=== PATIENT | male | born 1955 ===

== ENCOUNTER 2022-01-19 10:50 | Inpatient (IN) ==
--- NOTE | 2022-01-19 11:07 | Internal Med History&Physical ---
HPI History of Present Illness Patient information: Note initiated : 01/19/22 at 11:04 am Service Date, if different from initiated Date: [] Patient: Armani Au a 66 y/o M admitted on for alcohol withdraw. Chief Complaint: [] History of present illness: Mr. Au is a 66 year old M Patient presents to [facility] Monday night for alcohol withdrawal. He has a history of alcohol-related seizure activity. He drinks a fifth of vodka daily In [place], he has been on IV Ativan with elevated CIWA scores and they have also been using Librium as they are running low on Ativan. They must be out of bed and are looking elsewhere for transfer. Chest x-ray report done at [place] reported left lower lobe consolidation. We will check a CBC and procalcitonin to evaluate for pneumonia. Patient does carry history of depression/PTSD possibly CAD and CHF as well as asthma obesity and of course alcohol abuse. Patient has a history of CAD with stents and is on Eliquis he says that Eliquis is for his heart. Patient has a history of COPD is on 4 L of oxygen day and night. He also wears a CPAP machine at night for DANE. Has a cough but states this is chronic. Also complains of headaches Review of Systems: Pertinent positives as above. Denies /fever/chills/nausea/vomiting/chest or abdominal pain/diarrhea. Remaining 10 point review of system reviewed negative MEDS/ALLERGIES Home Medications and Allergies Allergies Allergy/AdvReac Type Severity Reaction Status Date / Time No Known Drug Allergies Allergy Verified 01/19/22 14:07 EXAM Constitutional Exam: General: Awake, No acute Distress, obese Eyes/N/T: EOMI, PERRL, Head/Neck: neck supple, normocephalic atraumatic CV: Mildly tacky but regular, No murmurs, normal s1/s2 Pulm: Moderately diminished b/l, wheezing b/l Abd: soft, nontender, +BS x4 Ext: no clubbing/cyanosis, 1+ b/l LE edema Neuro: Awake but drowsy, no focal deficits, moves all extremities, CN 2-12 grossly intact, symmetrical strength b/l upper/lower, Skin: warm/dry A/P Narrative A/P Narrative: A: *Alcohol abuse and severe Alcohol Withdrawal: *Encephalopathy(drowsy): 2/2 above *COPD (4L O2@home): possible exacerbation - *Tobacco abuse: *Obesity: *DANE on cpap: *CAD w/stent: on eliquis *?h/o CHF *Depression/PTSD: *Chronic pain/Neuropathy: *GERD: P: -CIWA with prn benzo, vitamins/thiamine/folate -monitor airway and vitals closely -labs, cxr/pct, -O2 supp, IS/acapella, prn nebs, RT -cpap -Smoking cessation counseling >3 minutes -Home medication reconciliation -pt/ot -ppx: eliquis / home ppi Time Spent With Patient Time: Total time spent is greater than 50% in coordination of care (as documented) at patient's floor/unit and/or counseling patient: Total time spent with greater than 50% in coordination of care (as documented) at patient's floor/unit and/or counseling patient:: Greater than 70 minutes
[2022-01-19] MEDS ORDERED: MAGNESIUM SULFATE 2 GM/50 ML BAG IV PRN (11:12)
[2022-01-19] MEDS ORDERED: POTASSIUM CHLORIDE 20 MEQ TABLET PO PRN ×2 (11:12)
[2022-01-19] MEDS ORDERED: METOCLOPRAMIDE 10 MG/2 ML VIAL IV PRN (11:12)
[2022-01-19] MEDS ORDERED: POTASSIUM CHLORIDE 40 MEQ in DEXTROSE 5% IN WATER 500 ML IV PRN (11:12)
[2022-01-19] MEDS ORDERED: cloNIDine HCL 0.1 MG TABLET PO PRN (14:17)
[2022-01-19] MEDS: LORazepam 2 MG/ML VIAL IV PRN (14:19)
[2022-01-19] MEDS: 0.9 % SODIUM CHLORIDE 10 ML SYRINGE IV SCH ×5 (14:26→23:33)
--- NOTE | 2022-01-19 14:53 | XRay Report ---
CLINICAL INFORMATION: Wheezing COMPARISON: None. TECHNIQUE: Portable FINDINGS: Heart is mildly enlarged. TAVR aortic valve replacement in expected location. Mediastinum is unremarkable. There is mild redistribution of the upper lobe pulmonary vasculature. No edema. Subsegmental left basilar atelectasis and small left pleural effusion noted. No definite infiltrates. IMPRESSION: Subsegmental left basilar atelectasis and small left pleural effusion. Equivocal CHF or volume overload. Consider diuretic trial Interpreted and Authenticated by: Armani Jimenez 01/19/22
[2022-01-19 15:00] LABS: INR 0.9 (0.9-1.1); Prothrombin Time 12.7 sec (11.9-14.5)
[2022-01-19] MEDS ORDERED: FUROSEMIDE 40 MG/4 ML VIAL IV ONE (15:00)
[2022-01-19] MEDS: THIAMINE 100 MG in 0.9 % SODIUM CHLORIDE 50 ML IV SCH (15:09)
[2022-01-19 15:15] LABS: HDL Cholesterol 48 mg/dL (>40); LDL Cholesterol,Calculated 98 mg/dL (<100); Non-HDL Cholesterol 118 mg/dL (<130); Triglycerides 105 mg/dL (<150)
[2022-01-19] MEDS ORDERED: HALOPERIDOL LACTATE 5 MG/ML VIAL IV ONE (15:33)
[2022-01-19] MEDS ORDERED: DIAZEPAM 10 MG/2 ML SYRINGE IV PRN ×2 (15:36→19:31)
[2022-01-19 15:41] LABS: ALT/SGPT 17 U/L (<40); AST/SGOT 22 U/L (<40); Albumin/Globulin Ratio 1.5 (1.0-2.3); Alkaline Phosphatase 72 U/L (39-117); Bilirubin,Direct < 0.2 mg/dL (0-0.3); Bilirubin,Total 0.3 mg/dL (0.1-1.0); Blood Urea Nitrogen 9 mg/dL (8-23); Calcium 8.7 mg/dL (8.6-10.4); Carbon Dioxide 26 mmol/L (22-30); Chloride 103 mmol/L (96-108); Globulin 2.6 gm/dL (2.2-3.7); Glomerular Filtration Rate 103; Glucose 90 mg/dL (70-105); Lactate Dehydrogenase 304 U/L (135-225); Phosphorous 3.3 mg/dL (2.5-4.5); Triglycerides 107 mg/dL (<150); Uric Acid 4.7 mg/dL (2.5-8.0)
[2022-01-19] MEDS ORDERED: HALOPERIDOL LACTATE 5 MG/ML VIAL ONE (15:43)
[2022-01-19] MEDS: IPRATROPIUM/ALBUTEROL 3 ML AMPUL.NEB NEB SCH ×2 (15:46→18:01)
[2022-01-19] MEDS: DEXMEDETOMIDINE 400 MCG in PREMIX 1 BAG IV SCH ×2 (16:10→22:30)
[2022-01-19] MEDS: BUDESONIDE 0.5 MG/2 ML AMPUL.NEB NEB SCH ×2 (18:01→23:35)
[2022-01-19] MEDS: ONDANSETRON 4 MG/2 ML VIAL IV PRN (19:01)
[2022-01-19] MEDS ORDERED: cloNIDine TTS 1 1 PATCH PATCH TD PRN (19:28)
[2022-01-19] MEDS ORDERED: morphine 4 MG/ML VIAL ONE (20:05)
--- NOTE | 2022-01-19 20:26 | Procedure Note ---
PROC Central Line Placement Right IJ: Consent obtained: verbal consent Date of Procedure: 01/19/22 Time out performed: Yes Patient placed on monitor/pulse ox: Yes MD prep: mask, sterile gown, sterile gloves and cap Central line prep: 2% Chlorhexidine scrub Local anesthesia used: lidocaine 1% Amount of anesthesia used (mls): 3 Ultrasound used for placement: Yes Central line lumen inserted: quad and 16 cm Post procedure: sutured in place, good blood return, all ports aspirated, flushed, capped and sterile dressing applied Patient tolerated procedure: well Complications: none Additional comments: Stat chest x-ray ordered to confirm placement. Poor IV access and need for central access.
[2022-01-19] MEDS ORDERED: APIXABAN 5 MG TABLET PO SCH (21:00)
[2022-01-19] MEDS: DOCUSATE SODIUM 100 MG CAPSULE PO SCH (21:26)
[2022-01-19] MEDS: ENOXAPARIN 60 MG/0.6 ML SYRINGE SQ SCH (21:28)
[2022-01-19] MEDS ORDERED: methylPREDNISolone SOD SUCC 125 MG/2 ML VIAL IV ONE (21:37)
[2022-01-19] MEDS: IPRATROPIUM/ALBUTEROL 3 ML AMPUL.NEB NEB PRN (21:43)
[2022-01-19] MEDS: methylPREDNISolone SOD SUCC 125 MG/2 ML VIAL IV SCH (23:31)
[2022-01-19] MEDS ORDERED: methylPREDNISolone SOD SUCC 40 MG/ML VIAL IV ONE (23:38)
[2022-01-20] MEDS: ONDANSETRON 4 MG/2 ML VIAL IV PRN (00:10)
[2022-01-20] MEDS: IPRATROPIUM/ALBUTEROL 3 ML AMPUL.NEB NEB SCH ×2 (00:22→09:27)
[2022-01-20] MEDS ORDERED: PIPERACILLIN SODIUM/TAZOBACTAM 3.375 GM in DEXTROSE 5% IN WATER 50 ML IV ONE (00:34)
[2022-01-20] MEDS: morphine 2 MG/ML VIAL IV PRN ×3 (01:07→08:32)
[2022-01-20] MEDS ORDERED: MIDAZOLAM HCL 50 MG/10 ML VIAL IV ONE (01:34)
--- NOTE | 2022-01-20 01:48 | Emergency Department Note ---
Event Note Event Note: Procedure note: Intubation with procedural sedation A time out was performed. Patient received 20 mg of etomidate for induction and 100 mg of rocuronium for paralysis Gerlach scope was used and vocal cords were identified 7.5 endotracheal tube with stylette was utilized and visualized through the cords Patient was intubated on first attempt and the stylet was removed and balloon cuff inflated Position of the tube was confirmed with fogging of the tube, CO2 colorimetric indicator and bilateral symmetric breath sounds The tube was secured at 21 cm at the teeth Post intubation chest x-ray showed the tube need to be advanced To advance the 28 cm at the teeth with x-ray confirming good placement No complication encountered. Patient stable on ventilator at completion of procedure.
[2022-01-20] MEDS: MIDAZOLAM HCL 50 MG in 0.9 % SODIUM CHLORIDE 90 ML IV SCH ×3 (02:20→19:49)
--- NOTE | 2022-01-20 03:30 | XRay Report ---
CLINICAL INFORMATION: Wheezing COMPARISON: 01/19/2022 1416 hours TECHNIQUE: Portable FINDINGS: The right IJ central line tip overlies the SVC. No complication of line placement. Heart is mildly enlarged. TAVR aortic valve replacement in expected location. Mediastinum is unremarkable. Pulmonary vasculature is unremarkable on this exam. Minor left basilar atelectasis appreciated. Small left pleural effusion IMPRESSION: Subsegmental left basilar atelectasis and small left effusion improving No evidence of CHF New right IJ central line in satisfactory position. No complication from line placement. Interpreted and Authenticated by: Armani Jimenez 01/20/22
--- NOTE | 2022-01-20 03:32 | XRay Report ---
CLINICAL INFORMATION: Dyspnea. Endotracheal tube and NG placement COMPARISON: 11/19/20212024 hours TECHNIQUE: PA and Lateral views FINDINGS: Mild cardiomegaly unchanged. Mediastinum unremarkable. Endotracheal tip is 3 cm above the mark. NG tube extends off the edge of the film-at least the gastric body. Right IJ line is stable satisfactory position. Pulmonary vessels normal. Minor left basilar atelectasis and tiny left pleural effusion unchanged. IMPRESSION: Endotracheal tube and NG tube in satisfactory position. Minor left basilar atelectasis Interpreted and Authenticated by: Armani Jimenez 01/20/22
[2022-01-20] MEDS: 0.9 % SODIUM CHLORIDE 10 ML SYRINGE IV SCH ×9 (03:55→20:22)
[2022-01-20] MEDS: DEXMEDETOMIDINE 400 MCG in PREMIX 1 BAG IV SCH ×3 (05:34→18:13)
[2022-01-20] MEDS: methylPREDNISolone SOD SUCC 125 MG/2 ML VIAL IV SCH ×3 (06:45→21:09)
[2022-01-20 06:54] LABS: Basophils # (Auto) 0.02 K/mcL (0.00-0.30); Basophils % (Auto) 0.3 % (0.0-2.0); Eosinophils # (Auto) 0.01 K/mcL (0.00-0.70); Eosinophils % (Auto) 0.1 % (0.0-7.0); Hematocrit 37.1 % (40.1-51.0); Hemoglobin 11.1 g/dL (13.7-17.5); Lymphocytes # (Auto) 0.56 K/mcL (1.50-4.80); Mean Cell Volume 85.1 fL (80.0-100.0); Mean Corpuscular HGB Conc 29.9 g/dL (31.0-36.0); Mean Platelet Volume 10.7 fL (7.4-10.4); Monocytes # (Auto) 0.24 K/mcL (0.10-0.90); Neutrophils % (Auto) 89.3 % (38.0-78.0); Platelet Count 170 K/mcL (140-440); RBC 4.36 M/mcL (4.63-6.08); Red Cell Distribution Width 16.5 % (11.5-14.5)
[2022-01-20 07:16] LABS: ALT/SGPT 16 U/L (<40); AST/SGOT 20 U/L (<40); Albumin 3.5 gm/dL (3.2-5.2); Albumin/Globulin Ratio 1.2 (1.0-2.3); Alkaline Phosphatase 67 U/L (39-117); Bilirubin,Direct < 0.2 mg/dL (0-0.3); Bilirubin,Total 0.3 mg/dL (0.1-1.0); Blood Urea Nitrogen 14 mg/dL (8-23); Calcium 8.8 mg/dL (8.6-10.4); Carbon Dioxide 30 mmol/L (22-30); Chloride 101 mmol/L (96-108); Globulin 2.9 gm/dL (2.2-3.7); Glomerular Filtration Rate 91; Glucose 160 mg/dL (70-105); Lactate Dehydrogenase 294 U/L (135-225); Phosphorous 2.7 mg/dL (2.5-4.5); Triglycerides 104 mg/dL (<150); Uric Acid 5.7 mg/dL (2.5-8.0)
--- NOTE | 2022-01-20 07:44 | Internal Med Progress Note ---
SUBJECTIVE Subjective Patient information: Note initiated : 01/20/22 at 7:42 am Service Date, if different from initiated Date: [] Patient: Armani Au a 66 y/o M admitted on 01/19/22 for alcohol withdraw. Chief Complaint: [] Interval history: History of present illness: Mr. Au is a 66 year old M Patient presents to [facility] Monday night for alcohol withdrawal. He has a history of alcohol-related seizure activity. He drinks a fifth of vodka daily In [place], he has been on IV Ativan with elevated CIWA scores and they have also been using Librium as they are running low on Ativan. They must be out of bed and are looking elsewhere for transfer. Chest x-ray report done at [place] reported left lower lobe consolidation. We will check a CBC and procalcitonin to evaluate for pneumonia. Patient does carry history of depression/PTSD possibly CAD and CHF as well as asthma obesity and of course alcohol abuse. Patient has a history of CAD with stents and is on Eliquis he says that Eliquis is for his heart. Patient has a history of COPD is on 4 L of oxygen day and night. He also wears a CPAP machine at night for DANE. Has a cough but states this is chronic. Also complains of headaches 01/20 Patient found to be hypercapnic with respiratory acidosis upon arrival yesterday was placed on BiPAP. Patient became quite agitated at times and did require heavy sedation. Over time his work of breathing increased and concern for airway compromise with IV sedation patient required intubation. Started on acute exacerbation COPD treatment yesterday for bilateral wheezing and severely diminished lung sounds. Review of system: Unable obtain given sedated on the vent Constitutional Vitals: Vital Signs Temp Pulse Resp BP Pulse Ox O2 Del Method O2 Flow Rate 99.1 F H 69 19 119/73 96 5 01/20/22 07:01 01/20/22 07:01 01/20/22 06:01 01/20/22 07:01 01/20/22 07:01 01/20/22 03:20 01/19/22 22:01 Period Temp Pulse Resp BP Sys/Gonzales Pulse Ox O2 Del Method O2 Flow Rate Last 24 Hr 97.8 F-101.3 F 66-103 13-41 88-165/58-96 90-100 BiPAP-Oxymask 4-7 Intake and Output 01/19/22 01/20/22 01/20/22 21:59 05:59 13:59 Intake Total 103 196 Output Total 187 210 65 Balance -1771 Weight 107.592 kg Intake & Output: Intake & Output 01/19/22 01/20/22 01/20/22 21:59 05:59 13:59 Intake Total 103 196 Output Total 1874 210 65 Balance -1771 Weight 107.592 kg Intake: IV 103 196 Precedex 400 Mcg/100 ml 52 122 Dextrose 400 Mcg In Premix 1 Bag @ 0.2 MCG/KG/HR 5.6 mls/hr IV .[id number] [facility] Rx#:[id number] Versed 50 mg In Sodium Chloride 24 0.9% 90 ml @ 1 MG/HR 2 mls/hr IV Q24H [facility] Rx#:[id number] Zosyn 3.375 gm In Dextrose 5% 50 in Water 50 ml @ 100 mls/hr IV ONCE ONE Rx#:[id number] Vitamin B1 100 mg In Sodium 51 Chloride 0.9% 50 ml @ 50 mls/hr IV DAILY [facility] Rx#:[id number] Tube Feeding 0 Output: Urine Catheter Amount 1874 Other: Urine Appearance Clear Cloudy Sediment Uretheral (Damon) Clear Urine Color Bright Yellow Bright Yellow Dark Yellow Uretheral (Damon) Dark Yellow Urine Odor Uretheral (Damon) Strong Exam: General: Sedated on the vent no acute Distress, obese Eyes/N/T: PERRL, Head/Neck: neck supple, CV: RRR, No murmurs, Pulm: mildly diminished b/l, mild wheezing left side Abd: soft, protuberant, nontender, decreased BS x4 Ext: no clubbing/cyanosis, mild b/l LE edema Neuro: Sedated on the vent, moves all extremities spontaneously, Skin: warm/dry OBJ DATA Labs CBC & Chem 7: 01/20/22 05:39 01/20/22 05:39 Labs: Abnormal Lab Results 01/20/22 01/20/22 01/20/22 05:39 05:39 02:10 RBC 4.36 L Hgb 11.1 L Hct 37.1 L MCH 25.5 L MCHC 29.9 L RDW 16.5 H MPV 10.7 H Neut % (Auto) 89.3 H Lymph % (Auto) 7.0 L Lymph # (Auto) 0.56 L POC pH 7.31 L POC pCO2 68.3 H* POC pO2 POC HCO3 34.5 H POC Total CO2 37.0 H POC ABG Base Excess 8.0 H ABG Lactic Acid 0.3 L Hgb O2 Saturation Creatinine Glucose 160 H Lactate Dehydrogenase 294 H 01/20/22 01/19/22 01/19/22 00:56 23:59 22:49 RBC Hgb Hct MCH MCHC RDW MPV Neut % (Auto) Lymph % (Auto) Lymph # (Auto) POC pH 7.28 L 7.29 L 7.27 L POC pCO2 70.5 H* 69.0 H* 76.3 H* POC pO2 53 L 50 L 79 L POC HCO3 33.4 H 33.3 H 34.8 H POC Total CO2 36.0 H 35.0 H 37.0 H POC ABG Base Excess 7.0 H 7.0 H 8.0 H ABG Lactic Acid < 0.3 L 0.4 L 0.4 L Hgb O2 Saturation 81.0 L 79.0 L 93.0 L Creatinine Glucose Lactate Dehydrogenase 01/19/22 01/19/22 14:51 14:13 RBC Hgb Hct MCH MCHC RDW MPV Neut % (Auto) Lymph % (Auto) Lymph # (Auto) POC pH 7.26 L POC pCO2 71.3 H* POC pO2 POC HCO3 31.9 H POC Total CO2 34.0 H POC ABG Base Excess 5.0 H ABG Lactic Acid < 0.3 L Hgb O2 Saturation Creatinine 0.6 L Glucose Lactate Dehydrogenase 304 H Meds: Medications Acetaminophen (Acetaminophen 325 Mg Tablet) 650 mg PO Q6HP PRN; Protocol PRN Reason: Per Pain Protocol/Fever > 101 Hydrocodone Bitart/Acetaminophen (Hydrocodone/Apap 5/325mg Tablet) 1 tab PO Q4HP PRN PRN Reason: PAIN LEVEL 3-6 Albuterol/Ipratropium (Ipratropium/Albuterol 3 Ml Ampul.Neb) 3 ml NEB Q4HP PRN PRN Reason: Shortness Of Breath Last Admin: 01/19/22 21:43 Dose: 3 ml Budesonide (Budesonide 0.5 Mg/2 Ml Ampul.Neb) 0.5 mg NEB Q12 SARAH Last Admin: 01/19/22 23:35 Dose: Not Given Chlordiazepoxide HCl (Chlordiazepoxide 25 Mg Capsule) 50 mg PO Q4HP PRN PRN Reason: Alcohol Withdrawal/Assess CIWA Chlorhexidine Gluconate (Chlorhexidine Gluconate 1 Ml Oral.Merissa) 15 ml SWABMOUTH BID [facility] Clonidine HCl (Clonidine Tts 1 1 Patch Patch) 1 patch TD ONCE PRN PRN Reason: hypertension, withdrawal Last Admin: 01/20/22 03:04 Dose: 1 patch Diazepam (Diazepam 10 Mg/2 Ml Syringe) 5 mg IV Q2HP PRN PRN Reason: Alcohol Withdrawal/Assess CIWA Docusate Sodium (Docusate Sodium 100 Mg Capsule) 100 mg PO BID [facility] Last Admin: 01/19/22 21:26 Dose: Not Given Enoxaparin Sodium (Enoxaparin 60 Mg/0.6 Ml Syringe) 60 mg SQ BID [facility] Last Admin: 01/19/22 21:28 Dose: 60 mg Folic Acid (Folic Acid 1 Mg Tablet) 1 mg PO DAILY [facility] Haloperidol Lactate (Haloperidol Lactate 5 Mg/Ml Vial) 0.5 mg IM Q2HP PRN PRN Reason: Alcohol Withdrawal/Assess CIWA Potassium Chloride 40 meq/ (Dextrose) 520 mls @ 130 mls/hr IV UD PRN PRN Reason: Potassium < 3 Magnesium Sulfate (Magnesium Sulfate) 2 gm in 50 mls @ 50 mls/hr IV UD PRN PRN Reason: Magnesium </= 1.6 Thiamine HCl 100 mg/ Sodium (Chloride) 51 mls @ 50 mls/hr IV DAILY [facility] Last Infusion: 01/19/22 18:05 Dose: Infused Dexmedetomidine HCl 400 mcg/ (Premix) 100 mls @ 5.6 mls/hr IV .[id number] [facility]; Protocol Last Admin: 01/20/22 05:34 Dose: 0.6 mcg/kg/hr, 16.8 mls/hr Midazolam HCl 50 mg/ Sodium (Chloride) 100 mls @ 2 mls/hr IV Q24H [facility]; Protocol Last Titration: 01/20/22 05:20 Dose: 4 mg/hr, 8 mls/hr Iron Carb/Multivit/Organizational Development Specialist/Folic Acid (Multivit,Ther Iron,Ca,Fa & Min 1 Tablet) 1 tab PO DAILY [facility] Lorazepam (Lorazepam 2 Mg/Ml Vial) 0 mg IV Q4HP PRN; Protocol PRN Reason: Alcohol Withdrawal/Assess CIWA Last Admin: 01/19/22 14:19 Dose: 3 mg Methylprednisolone Sodium Succinate (Methylprednisolone Sod Succ 125 Mg/2 Ml Vial) 62.5 mg IV Q8 [facility] Last Admin: 01/20/22 06:45 Dose: 62.5 mg Metoclopramide HCl (Metoclopramide 10 Mg/2 Ml Vial) 10 mg IV Q6HP PRN PRN Reason: Nausea And Vomiting Morphine Sulfate (Morphine 2 Mg/Ml Vial) 1 - 4 mg IV Q3HP PRN; Protocol PRN Reason: Per Pain Protocol Last Admin: 01/20/22 03:55 Dose: 4 mg Ondansetron HCl (Ondansetron 4 Mg/2 Ml Vial) 4 mg IV Q4HP PRN PRN Reason: Nausea And Vomiting Last Admin: 01/20/22 00:10 Dose: 4 mg Pantoprazole Sodium (Pantoprazole 40 Mg Vial) 40 mg IV QAMAC [facility] Polyethylene Glycol (Polyethylene Glycol 3350 17 Gm Packet) 17 gm PO DAILYP PRN PRN Reason: Constipation Potassium Chloride (Potassium Chloride 20 Meq Tablet) 40 meq PO UD PRN PRN Reason: Potssium is 3-3.5 Potassium Chloride (Potassium Chloride 20 Meq Tablet) 40 meq PO UD PRN PRN Reason: Potassium < 3 Senna (Sennosides 1 Tablet) 2 tab PO DAILYP PRN PRN Reason: Constipation Sodium Chloride (0.9 % Sodium Chloride 10 Ml Syringe) 10 ml IV Q8 [facility] Last Admin: 01/20/22 05:35 Dose: 10 ml Sodium Chloride (0.9 % Sodium Chloride 10 Ml Syringe) 10 ml IV Q12 [facility] Last Admin: 01/19/22 21:00 Dose: 10 ml Sodium Chloride (0.9 % Sodium Chloride 10 Ml Syringe) 10 ml IV UD [facility] Last Admin: 01/20/22 06:47 Dose: 10 ml A/P Narrative A/P Narrative: A: *Alcohol abuse with Severe Alcohol Withdrawal: *Acute hypoxic/hypercapnic respiratory failure: 2/2 above -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 *Encephalopathy: 2/2 above *AECOPD (4L O2@home): - *Tobacco abuse: *Obesity: bmi 32 *DANE on cpap: *CAD w/stent: on eliquis *?h/o CHF: echo pending *Depression/PTSD: *Chronic pain/Neuropathy: *GERD: P: -vent management, versed gtt -CIWA with prn benzo, vitamins/thiamine/folate -steroids(wean), nebs and prn nebs -IVF maintenance while npo - -home cpap when off ventilator -Smoking cessation counseling -Home medication reconciliation -pt/ot -ppx: lovenox bid while off eliquis / ppi Time Spent With Patient Time: Total time spent is greater than 50% in coordination of care (as documented) at patient's floor/unit and/or counseling patient: Critical Care Time: Yes Total Critical Care Time: 50 QUALITY VTE Deep Vein Thrombosis/Pulmonary Embolism Present on Admission: No
[2022-01-20] MEDS: PANTOPRAZOLE 40 MG VIAL IV SCH (07:55)
[2022-01-20] MEDS: BUDESONIDE 0.5 MG/2 ML AMPUL.NEB NEB SCH ×2 (08:23→22:15)
[2022-01-20] MEDS: IPRATROPIUM/ALBUTEROL 3 ML AMPUL.NEB NEB PRN ×2 (08:24→14:11)
[2022-01-20] MEDS ORDERED: ETOMIDATE 20 MG/10 ML VIAL IV ONE (08:54)
[2022-01-20] MEDS ORDERED: ROCURONIUM 10 MG/ML ML IV ONE (08:54)
[2022-01-20] MEDS ORDERED: ENOXAPARIN 40 MG/0.4 ML SYRINGE SQ SCH (09:00)
[2022-01-20] MEDS ORDERED: LACTATED RINGERS 250 ML IV ONE (09:13)
[2022-01-20] MEDS: DOCUSATE SODIUM 100 MG CAPSULE PO SCH (09:27)
[2022-01-20 09:47] LABS: Anisocytosis 1+ (None Seen); Band Neutrophils % 4 % (0-10); Hypochromasia 2+ (None Seen); Lymphocytes % 2 % (15-49); Monocytes % (Manual) 2 % (1-12); Platelet Estimate NORMAL (Normal); Poikilocytosis 1+ (None Seen); RBC Morphology ABNORMAL (Normal); Reactive Lymphocytes 9 % (0-2); Segmented Neutrophils % 83 % (38-78)
[2022-01-20] MEDS: CHLORHEXIDINE GLUCONATE 1 ML ORAL.SOL SWABMOUTH SCH ×3 (09:52→20:22)
[2022-01-20] MEDS: FOLIC ACID 1 MG TABLET PO SCH (09:52)
[2022-01-20] MEDS: MULTIVIT,THER IRON,CA,FA & MIN 1 TABLET PO SCH (09:52)
[2022-01-20] MEDS: ENOXAPARIN 60 MG/0.6 ML SYRINGE SQ SCH ×2 (10:16→20:22)
[2022-01-20] MEDS: THIAMINE 100 MG in 0.9 % SODIUM CHLORIDE 50 ML IV SCH (10:56)
[2022-01-20] MEDS: DOCUSATE SODIUM 10 MG/ML ML PO SCH ×2 (11:37→21:03)
[2022-01-20] MEDS: 0.9 % SODIUM CHLORIDE 1,000 ML IV SCH ×3 (12:07→19:40)
[2022-01-20] MEDS: fentaNYL 100 MCG/2 ML VIAL IV PRN (14:45)
[2022-01-20] MEDS: GABAPENTIN 400 MG CAPSULE PO SCH ×2 (16:26→20:21)
[2022-01-20] MEDS: LACTATED RINGERS 250 ML IV SCH ×2 (17:21→19:43)
[2022-01-20 18:42] LABS: Appearance,Urine Clear (Clear); Bilirubin,Urine Negative (Negative); Color,Urine Yellow; Glucose,Urine (UA) Negative (Negative); Ketones,Urine Negative (Negative); Leukocyte Esterase,Urine Negative /uL (Negative); Nitrate,Urine Negative (Negative); PH,Urine 5.5 (5.0-9.0); Specific Gravity,Urine >= 1.030 (1.000-1.035); Urine Blood Large ery/mcL (Negative); Urobilinogen,Urine Normal
[2022-01-20 18:55] LABS: Culture Indicated,Urine No; Mucus,Urine Many /hpf; Urine Hyaline Cast 8 /lph (0-2); Urine RBC 174 /hpf (0-3); Urine Squamous Epithelial Cell 0 /hpf (0-4); Urine WBC 6 /hpf (0-4)
[2022-01-20] MEDS ORDERED: 0.9 % SODIUM CHLORIDE 250 ML IV SCH (19:45)
[2022-01-20] MEDS: 0.9 % SODIUM CHLORIDE 250 ML IV SCH (19:49)
[2022-01-20] MEDS: MONTELUKAST 10 MG TABLET PO SCH (20:21)
[2022-01-20] MEDS: ATORVASTATIN 40 MG TABLET PO SCH (20:21)
[2022-01-21] MEDS: fentaNYL 100 MCG/2 ML VIAL IV PRN ×5 (00:10→21:10)
[2022-01-21] MEDS: IPRATROPIUM/ALBUTEROL 3 ML AMPUL.NEB NEB PRN ×2 (00:30→06:38)
[2022-01-21] MEDS: LORazepam 2 MG/ML VIAL IV PRN ×4 (00:51→20:46)
[2022-01-21] MEDS: DEXMEDETOMIDINE 400 MCG in PREMIX 1 BAG IV SCH ×4 (00:54→06:02)
[2022-01-21] MEDS: MIDAZOLAM HCL 50 MG in 0.9 % SODIUM CHLORIDE 90 ML IV SCH ×4 (02:21→17:59)
[2022-01-21] MEDS: 0.9 % SODIUM CHLORIDE 1,000 ML IV SCH ×5 (02:21→19:22)
[2022-01-21] MEDS ORDERED: MIDAZOLAM HCL 50 MG/10 ML VIAL IV ONE (03:00)
[2022-01-21] MEDS: 0.9 % SODIUM CHLORIDE 10 ML SYRINGE IV SCH ×5 (05:22→21:56)
[2022-01-21] MEDS: methylPREDNISolone SOD SUCC 125 MG/2 ML VIAL IV SCH (05:26)
[2022-01-21 06:48] LABS: Basophils # (Auto) 0 K/mcL (0.00-0.30); Basophils % (Auto) 0 % (0.0-2.0); Eosinophils # (Auto) 0 K/mcL (0.00-0.70); Eosinophils % (Auto) 0 % (0.0-7.0); Hematocrit 34.9 % (40.1-51.0); Hemoglobin 10.6 g/dL (13.7-17.5); Lymphocytes # (Auto) 0.54 K/mcL (1.50-4.80); Lymphocytes % (Auto) 8.6 % (15.5-49.0); Mean Cell Volume 83.5 fL (80.0-100.0); Mean Corpuscular HGB Conc 30.4 g/dL (31.0-36.0); Mean Platelet Volume 11.8 fL (7.4-10.4); Monocytes # (Auto) 0.46 K/mcL (0.10-0.90); Monocytes % (Auto) 7.3 % (1.0-12.0); Neutrophils % (Auto) 83.8 % (38.0-78.0); Platelet Count 182 K/mcL (140-440); RBC 4.18 M/mcL (4.63-6.08); Red Cell Distribution Width 16.5 % (11.5-14.5); WBC 6.3 K/mcL (4.5-11.0)
[2022-01-21 07:20] LABS: ALT/SGPT 13 U/L (<40); AST/SGOT 14 U/L (<40); Albumin 3.3 gm/dL (3.2-5.2); Albumin/Globulin Ratio 1.2 (1.0-2.3); Alkaline Phosphatase 56 U/L (39-117); Bilirubin,Direct < 0.2 mg/dL (0-0.3); Bilirubin,Total 0.2 mg/dL (0.1-1.0); Blood Urea Nitrogen 17 mg/dL (8-23); Calcium 8.5 mg/dL (8.6-10.4); Carbon Dioxide 28 mmol/L (22-30); Chloride 103 mmol/L (96-108); Globulin 2.7 gm/dL (2.2-3.7); Glomerular Filtration Rate 96; Glucose 168 mg/dL (70-105); Lactate Dehydrogenase 243 U/L (135-225); Phosphorous 2.3 mg/dL (2.5-4.5); Triglycerides 98 mg/dL (<150); Uric Acid 3.6 mg/dL (2.5-8.0)
--- NOTE | 2022-01-21 08:03 | EKG ---
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
--- NOTE | 2022-01-21 08:09 | Internal Med Progress Note ---
SUBJECTIVE Subjective Patient information: Note initiated : 01/21/22 at 8:06 am Service Date, if different from initiated Date: [] Patient: Armani Au a 66 y/o M admitted on 01/19/22 for alcohol withdraw. Chief Complaint: [] Interval history: History of present illness: Mr. Au is a 66 year old M Patient presents to [facility] Monday night for alcohol withdrawal. He has a history of alcohol-related seizure activity. He drinks a fifth of vodka daily [place], he has been on IV Ativan with elevated CIWA scores and they have also been using Librium as they are running low on Ativan. They must be out of bed and are looking elsewhere for transfer. Chest x-ray report done at [place] reported left lower lobe consolidation. We will check a CBC and procalcitonin to evaluate for pneumonia. Patient does carry history of depression/PTSD possibly CAD and CHF as well as asthma obesity and of course alcohol abuse. Patient has a history of CAD with stents and is on Eliquis he says that Eliquis is for his heart. Patient has a history of COPD is on 4 L of oxygen day and night. He also wears a CPAP machine at night for DANE. Has a cough but states this is chronic. Also complains of headaches 01/20 Patient found to be hypercapnic with respiratory acidosis upon arrival yesterday was placed on BiPAP. Patient became quite agitated at times and did require heavy sedation. Over time his work of breathing increased and concern for airway compromise with IV sedation patient required intubation. Started on acute exacerbation COPD treatment yesterday for bilateral wheezing and severely diminished lung sounds. FEUrea <35%, FENa <1% 01/21 Patient doing relatively well on CPAP trial today. Good urine output. CBC unremarkable other than anemia. ABG this morning looks improved. We will attempt sedation vacation and see how he is neurologically. Hopefully we can extubate tomorrow morning. Review of system: Unable obtain given sedated on the vent Constitutional Vitals: Vital Signs Temp Pulse Resp BP Pulse Ox O2 Del Method O2 Flow Rate 98.1 F 66 19 156/89 100 5 01/21/22 08:01 01/21/22 08:01 01/21/22 08:01 01/21/22 08:01 01/21/22 08:01 01/21/22 02:00 01/19/22 22:01 Period Temp Pulse Resp BP Sys/Gonzales Pulse Ox O2 Del Method O2 Flow Rate Last 24 Hr 98.1 F-98.7 F 53-77 12- 100-156/58-90 88-100 Mechanical Ventilation-Mechanical Ventilation Intake and Output 01/20/22 01/21/22 01/21/22 21:59 05:59 13:59 Intake Total 1450 1255 7 Output Total 345 545 530 Balance 1105 710 -523 Weight 111.72 kg Intake & Output: Intake & Output 01/20/22 01/21/22 01/21/22 21:59 05:59 13:59 Intake Total 1450 1255 7 Output Total 345 545 530 Balance 1105 710 -523 Weight 111.72 kg Intake: IV 1450 1255 7 Sodium Chloride 0.9% 1,000 ml @ 1000 1000 120 mls/hr IV .Q8H20M SARAH Rx#: [id number] Precedex 400 Mcg/100 ml 82 178 7 Dextrose 400 Mcg In Premix 1 Bag @ 0.6 MCG/KG/HR 16.139 mls/ hr IV .Q6H12M SARAH Rx#:[id number] Lactated Ringers 250 ml @ 500 250 mls/hr IV .Q30M SARAH Rx#: [id number] Versed 50 mg In Sodium Chloride 118 77 0.9% 90 ml @ 1 MG/HR 2 mls/hr IV Q24H SARAH Rx#:[id number] Output: Gastric Drainage 450 Right Nare 450 Urine Catheter Amount 345 545 80 Other: Urine Appearance Cloudy Cloudy Sediment Sediment Sediment Urine Color Bright Yellow Dark Yellow Dark Yellow Exam: General: Sedated on the vent no acute Distress, obese Eyes/N/T: PERRL, Head/Neck: neck supple, CV: RRR, No murmurs, Pulm: mildly diminished b/l, mild wheezing left side Abd: soft, protuberant, nontender, + BS x4 Ext: no clubbing/cyanosis, 1+ b/l LE edema Neuro: Sedated on the vent, moves all extremities spontaneously, Skin: warm/dry OBJ DATA Labs CBC & Chem 7: 01/21/22 05:18 01/21/22 05:17 Labs: Abnormal Lab Results 01/21/22 01/21/22 01/21/22 07:08 05:18 05:17 RBC 4.18 L Hgb 10.6 L Hct 34.9 L MCH 25.4 L MCHC 30.4 L RDW 16.5 H MPV 11.8 H Neut % (Auto) 83.8 H Lymph % (Auto) 8.6 L Lymph # (Auto) 0.54 L Seg Neutrophils % Lymphocytes % Reactive Lymphocytes RBC Morphology Hypochromasia Poikilocytosis Anisocytosis POC pH POC pCO2 53.9 H* POC pO2 POC HCO3 29.6 H POC Total CO2 31.0 H POC ABG Base Excess 4.0 H ABG Lactic Acid Hgb O2 Saturation Creatinine Glucose 168 H Calcium 8.5 L Phosphorus 2.3 L Lactate Dehydrogenase 243 H Urine Protein Urine Occult Blood Urine RBC Urine WBC Hyaline Casts Urine Mucus 01/20/22 01/20/22 01/20/22 15:30 10:08 05:39 RBC 4.36 L Hgb 11.1 L Hct 37.1 L MCH 25.5 L MCHC 29.9 L RDW 16.5 H MPV 10.7 H Neut % (Auto) 89.3 H Lymph % (Auto) 7.0 L Lymph # (Auto) 0.56 L Seg Neutrophils % Lymphocytes % Reactive Lymphocytes RBC Morphology Hypochromasia Poikilocytosis Anisocytosis POC pH 7.33 L POC pCO2 61.8 H* POC pO2 63 L POC HCO3 32.5 H POC Total CO2 34.0 H POC ABG Base Excess 7.0 H ABG Lactic Acid Hgb O2 Saturation 89.0 L Creatinine Glucose Calcium Phosphorus Lactate Dehydrogenase Urine Protein 30 mg/dl A Urine Occult Blood Large A Urine RBC 174 H Urine WBC 6 H Hyaline Casts 8 H Urine Mucus Many A 01/20/22 01/20/22 01/20/22 05:39 05:30 02:10 RBC Hgb Hct MCH MCHC RDW MPV Neut % (Auto) Lymph % (Auto) Lymph # (Auto) Seg Neutrophils % 83 H Lymphocytes % 2 L Reactive Lymphocytes 9 H RBC Morphology Abnormal A Hypochromasia 2+ A Poikilocytosis 1+ A Anisocytosis 1+ A POC pH 7.31 L POC pCO2 68.3 H* POC pO2 POC HCO3 34.5 H POC Total CO2 37.0 H POC ABG Base Excess 8.0 H ABG Lactic Acid 0.3 L Hgb O2 Saturation Creatinine Glucose 160 H Calcium Phosphorus Lactate Dehydrogenase 294 H Urine Protein Urine Occult Blood Urine RBC Urine WBC Hyaline Casts Urine Mucus 01/20/22 01/19/22 01/19/22 00:56 23:59 22:49 RBC Hgb Hct MCH MCHC RDW MPV Neut % (Auto) Lymph % (Auto) Lymph # (Auto) Seg Neutrophils % Lymphocytes % Reactive Lymphocytes RBC Morphology Hypochromasia Poikilocytosis Anisocytosis POC pH 7.28 L 7.29 L 7.27 L POC pCO2 70.5 H* 69.0 H* 76.3 H* POC pO2 53 L 50 L 79 L POC HCO3 33.4 H 33.3 H 34.8 H POC Total CO2 36.0 H 35.0 H 37.0 H POC ABG Base Excess 7.0 H 7.0 H 8.0 H ABG Lactic Acid < 0.3 L 0.4 L 0.4 L Hgb O2 Saturation 81.0 L 79.0 L 93.0 L Creatinine Glucose Calcium Phosphorus Lactate Dehydrogenase Urine Protein Urine Occult Blood Urine RBC Urine WBC Hyaline Casts Urine Mucus 01/19/22 01/19/22 14:51 14:13 RBC Hgb Hct MCH MCHC RDW MPV Neut % (Auto) Lymph % (Auto) Lymph # (Auto) Seg Neutrophils % Lymphocytes % Reactive Lymphocytes RBC Morphology Hypochromasia Poikilocytosis Anisocytosis POC pH 7.26 L POC pCO2 71.3 H* POC pO2 POC HCO3 31.9 H POC Total CO2 34.0 H POC ABG Base Excess 5.0 H ABG Lactic Acid < 0.3 L Hgb O2 Saturation Creatinine 0.6 L Glucose Calcium Phosphorus Lactate Dehydrogenase 304 H Urine Protein Urine Occult Blood Urine RBC Urine WBC Hyaline Casts Urine Mucus Meds: Medications Acetaminophen (Acetaminophen 325 Mg Tablet) 650 mg PO Q6HP PRN; Protocol PRN Reason: Per Pain Protocol/Fever > 101 Hydrocodone Bitart/Acetaminophen (Hydrocodone/Apap 5/325mg Tablet) 1 tab PO Q4HP PRN PRN Reason: PAIN LEVEL 3-6 Albuterol/Ipratropium (Ipratropium/Albuterol 3 Ml Ampul.Neb) 3 ml NEB Q4HP PRN PRN Reason: Shortness Of Breath Last Admin: 01/21/22 06:38 Dose: 3 ml Atorvastatin Calcium (Atorvastatin 40 Mg Tablet) 40 mg PO QHS [facility] Last Admin: 01/20/22 20:21 Dose: 40 mg Budesonide (Budesonide 0.5 Mg/2 Ml Ampul.Neb) 0.5 mg NEB Q12 [facility] Last Admin: 01/20/22 22:15 Dose: 0.5 mg Chlordiazepoxide HCl (Chlordiazepoxide 25 Mg Capsule) 50 mg PO Q4HP PRN PRN Reason: Alcohol Withdrawal/Assess CIWA Chlorhexidine Gluconate (Chlorhexidine Gluconate 1 Ml Oral.Merissa) 15 ml SWABMOUTH BID [facility] Last Admin: 01/20/22 19:00 Dose: Not Given Clonidine HCl (Clonidine Tts 1 1 Patch Patch) 1 patch TD ONCE PRN PRN Reason: hypertension, withdrawal Last Admin: 01/20/22 03:04 Dose: 1 patch Diazepam (Diazepam 10 Mg/2 Ml Syringe) 5 mg IV Q2HP PRN PRN Reason: Alcohol Withdrawal/Assess CIWA Docusate Sodium (Docusate Sodium 10 Mg/Ml Ml) 100 mg PO BID [facility] Last Admin: 01/20/22 21:03 Dose: 100 mg Enoxaparin Sodium (Enoxaparin 60 Mg/0.6 Ml Syringe) 60 mg SQ BID [facility] Last Admin: 01/20/22 20:22 Dose: 60 mg Fentanyl (Fentanyl 100 Mcg/2 Ml Vial) 25 - 50 mcg IV Q1HP PRN; Protocol PRN Reason: Per Pain Protocol Last Admin: 01/21/22 06:34 Dose: 50 mcg Folic Acid (Folic Acid 1 Mg Tablet) 1 mg PO DAILY [facility] Last Admin: 01/20/22 09:52 Dose: 1 mg Gabapentin (Gabapentin 400 Mg Capsule) 400 mg PO TID [facility] Last Admin: 01/20/22 20:21 Dose: 400 mg Haloperidol Lactate (Haloperidol Lactate 5 Mg/Ml Vial) 0.5 mg IM Q2HP PRN PRN Reason: Alcohol Withdrawal/Assess CIWA Potassium Chloride 40 meq/ (Dextrose) 520 mls @ 130 mls/hr IV UD PRN PRN Reason: Potassium < 3 Magnesium Sulfate (Magnesium Sulfate) 2 gm in 50 mls @ 50 mls/hr IV UD PRN PRN Reason: Magnesium </= 1.6 Thiamine HCl 100 mg/ Sodium (Chloride) 51 mls @ 50 mls/hr IV DAILY [facility] Last Infusion: 01/20/22 12:59 Dose: Infused Midazolam HCl 50 mg/ Sodium (Chloride) 100 mls @ 2 mls/hr IV Q24H [facility]; Protocol Last Admin: 01/21/22 02:53 Dose: 7 mg/hr, 14 mls/hr Sodium Chloride (Sodium Chloride 0.9%) 1,000 mls @ 120 mls/hr IV .Q8H20M [facility] Last Admin: 01/21/22 04:21 Dose: 120 mls/hr Dexmedetomidine HCl 400 mcg/ (Premix) 100 mls @ 16.139 mls/hr IV .Q6H12M [facility]; Protocol Last Admin: 01/21/22 06:02 Dose: 0.6 mcg/kg/hr, 16.139 mls/hr Sodium Chloride (Sodium Chloride 0.9%) 250 mls @ 20 mls/hr IV .[id number] [facility] Last Admin: 01/20/22 19:49 Dose: 20 mls/hr Sodium Chloride (Sodium Chloride 0.9%) 250 mls @ 20 mls/hr IV .[id number] [facility] Last Admin: 01/20/22 19:49 Dose: 20 mls/hr Iron Carb/Multivit/Facilities Maintenance Assistant/Folic Acid (Multivit,Ther Iron,Ca,Fa & Min 1 Tablet) 1 tab PO DAILY [facility] Last Admin: 01/20/22 09:52 Dose: 1 tab Lorazepam (Lorazepam 2 Mg/Ml Vial) 0 mg IV Q4HP PRN; Protocol PRN Reason: Alcohol Withdrawal/Assess CIWA Last Admin: 01/21/22 07:29 Dose: 2 mg Methylprednisolone Sodium Succinate (Methylprednisolone Sod Succ 125 Mg/2 Ml Vial) 40 mg IV Q8 [facility] Last Admin: 01/21/22 05:26 Dose: 40 mg Metoclopramide HCl (Metoclopramide 10 Mg/2 Ml Vial) 10 mg IV Q6HP PRN PRN Reason: Nausea And Vomiting Metoprolol Succinate (Metoprolol Succinate 50 Mg Tab.Xl.24h) 50 mg PO QDAY [facility] Montelukast Sodium (Montelukast 10 Mg Tablet) 10 mg PO QHS [facility] Last Admin: 01/20/22 20:21 Dose: 10 mg Ondansetron HCl (Ondansetron 4 Mg/2 Ml Vial) 4 mg IV Q4HP PRN PRN Reason: Nausea And Vomiting Last Admin: 01/20/22 00:10 Dose: 4 mg Pantoprazole Sodium (Pantoprazole 40 Mg Vial) 40 mg IV QAMAC [facility] Last Admin: 01/20/22 07:55 Dose: 40 mg Polyethylene Glycol (Polyethylene Glycol 3350 17 Gm Packet) 17 gm PO DAILYP PRN PRN Reason: Constipation Potassium Chloride (Potassium Chloride 20 Meq Tablet) 40 meq PO UD PRN PRN Reason: Potssium is 3-3.5 Potassium Chloride (Potassium Chloride 20 Meq Tablet) 40 meq PO UD PRN PRN Reason: Potassium < 3 Senna (Sennosides 1 Tablet) 2 tab PO DAILYP PRN PRN Reason: Constipation Sodium Chloride (0.9 % Sodium Chloride 10 Ml Syringe) 10 ml IV Q8 [facility] Last Admin: 01/21/22 05:22 Dose: 10 ml Sodium Chloride (0.9 % Sodium Chloride 10 Ml Syringe) 10 ml IV Q12 [facility] Last Admin: 01/20/22 19:50 Dose: Not Given Sodium Chloride (0.9 % Sodium Chloride 10 Ml Syringe) 10 ml IV UD [facility] Last Admin: 01/20/22 13:58 Dose: 10 ml Venlafaxine HCl (Venlafaxine 75 Mg Cap.Xl.24h) 225 mg PO DAILY [facility] A/P Narrative A/P Narrative: A: *Alcohol abuse w/Severe Alcohol Withdrawal: *Acute hypoxic/hypercapnic respiratory failure: 2/2 above. 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 *Encephalopathy: 2/2 above *AECOPD (4L O2@home): - *Tobacco abuse: *Obesity: bmi 32 *DANE on cpap: *CAD w/stent: on eliquis *?h/o CHF: echo pending *Depression/PTSD: *Chronic pain/Neuropathy: *GERD: P: -vent management, versed gtt, sedation vacations and cpap trials -CIWA with prn benzo, vitamins/thiamine/folate -steroids(wean), nebs and prn nebs -IVF maintenance while npo -NGT and TF's today -home cpap when off ventilator -Smoking cessation counseling -pt/ot -ppx: lovenox bid while off eliquis / ppi Time Spent With Patient Time: Total time spent is greater than 50% in coordination of care (as documented) at patient's floor/unit and/or counseling patient: Critical Care Time: Yes Total Critical Care Time: 45 QUALITY VTE Deep Vein Thrombosis/Pulmonary Embolism Present on Admission: No Restraints Restraint In Place: Yes Reason for restraints: protect lines and ventilator, pt impulsive/confused at times.
[2022-01-21] MEDS: 0.9 % SODIUM CHLORIDE 250 ML IV SCH ×2 (08:22→21:19)
[2022-01-21] MEDS: FOLIC ACID 1 MG TABLET PO SCH (08:58)
[2022-01-21] MEDS: MULTIVIT,THER IRON,CA,FA & MIN 1 TABLET PO SCH (08:58)
[2022-01-21] MEDS: BUDESONIDE 0.5 MG/2 ML AMPUL.NEB NEB SCH ×2 (08:58→20:56)
[2022-01-21] MEDS: GABAPENTIN 400 MG CAPSULE PO SCH ×3 (08:58→21:02)
[2022-01-21] MEDS: ENOXAPARIN 60 MG/0.6 ML SYRINGE SQ SCH ×2 (08:59→21:02)
[2022-01-21] MEDS: PANTOPRAZOLE 40 MG VIAL IV SCH (08:59)
[2022-01-21] MEDS ORDERED: VENLAFAXINE 75 MG CAP.XL.24H PO SCH (09:00)
[2022-01-21] MEDS: DOCUSATE SODIUM 10 MG/ML ML PO SCH ×2 (09:00→21:03)
[2022-01-21] MEDS ORDERED: METOPROLOL SUCCINATE 50 MG TAB.XL.24H PO SCH (09:00)
[2022-01-21] MEDS: CHLORHEXIDINE GLUCONATE 1 ML ORAL.SOL SWABMOUTH SCH ×2 (09:01→21:03)
[2022-01-21] MEDS: THIAMINE 100 MG in 0.9 % SODIUM CHLORIDE 50 ML IV SCH (10:17)
[2022-01-21] MEDS ORDERED: LABETALOL 5 MG/ML ML IV PRN (10:34)
[2022-01-21] MEDS ORDERED: hydrALAZINE 20 MG/ML VIAL IV PRN (10:34)
[2022-01-21] MEDS ORDERED: cloNIDine TTS 2 1 PATCH PATCH TD ONE (10:46)
[2022-01-21] MEDS ORDERED: MIDAZOLAM HCL 50 MG in 0.9 % SODIUM CHLORIDE 90 ML IV SCH (11:00)
[2022-01-21] MEDS: PROPOFOL 1,000 MG in PREMIX 1 BAG IV SCH ×4 (11:00→23:01)
--- NOTE | 2022-01-21 11:26 | XRay Report ---
CLINICAL INFORMATION: Alcohol withdrawal. Chest pain COMPARISON: 01/20/2022 TECHNIQUE: PA and Lateral views FINDINGS: Lines and tubes remain in stable satisfactory position. Mild cardiomegaly unchanged. Mediastinum and pulmonary vessels are unremarkable. Minor atelectasis left base and tiny left pleural effusion unchanged. IMPRESSION: Mild stable cardiomegaly. Minor left basilar atelectasis and tiny left pleural effusion Interpreted and Authenticated by: Armani Jimenez 01/21/22
[2022-01-21] MEDS: METOPROLOL TARTRATE 25 MG TABLET PO SCH ×2 (12:14→21:02)
[2022-01-21] MEDS: VENLAFAXINE 75 MG TABLET PO SCH ×2 (12:14→21:02)
[2022-01-21] MEDS: IPRATROPIUM/ALBUTEROL 3 ML AMPUL.NEB NEB SCH ×2 (14:25→20:56)
[2022-01-21] MEDS: MONTELUKAST 10 MG TABLET PO SCH (21:02)
[2022-01-21] MEDS: ATORVASTATIN 40 MG TABLET PO SCH (21:03)
[2022-01-21] MEDS: methylPREDNISolone SOD SUCC 40 MG/ML VIAL IV SCH (21:04)
[2022-01-22] MEDS: IPRATROPIUM/ALBUTEROL 3 ML AMPUL.NEB NEB SCH ×4 (01:00→19:20)
[2022-01-22] MEDS: MIDAZOLAM HCL 50 MG in 0.9 % SODIUM CHLORIDE 90 ML IV SCH ×4 (01:06→21:00)
[2022-01-22] MEDS: 0.9 % SODIUM CHLORIDE 1,000 ML IV SCH ×5 (02:17→22:07)
[2022-01-22] MEDS: PROPOFOL 1,000 MG in PREMIX 1 BAG IV SCH ×4 (02:28→09:29)
[2022-01-22] MEDS: fentaNYL 100 MCG/2 ML VIAL IV PRN ×2 (02:45→11:20)
[2022-01-22] MEDS ORDERED: MIDAZOLAM HCL 50 MG/10 ML VIAL IV ONE (04:16)
--- NOTE | 2022-01-22 05:37 | XRay Report ---
CLINICAL INFORMATION: Alcohol withdrawal. Chest pain COMPARISON: 01/20/2022 TECHNIQUE: PA and Lateral views FINDINGS: Lines and tubes remain in stable satisfactory position. Mild cardiomegaly unchanged. Mediastinum and pulmonary vessels are unremarkable. Moderate airspace disease in the left base and small left pleural effusion increased. This either represents progression in atelectasis or infiltrate. IMPRESSION: Mild stable cardiomegaly. Moderate left basilar airspace disease and left pleural effusion worsening. Interpreted and Authenticated by: Armani Jimenez 01/22/22
[2022-01-22] MEDS: 0.9 % SODIUM CHLORIDE 10 ML SYRINGE IV SCH ×5 (06:09→20:59)
[2022-01-22] MEDS: BUDESONIDE 0.5 MG/2 ML AMPUL.NEB NEB SCH ×2 (07:15→19:20)
[2022-01-22 07:19] LABS: ALT/SGPT 13 U/L (<40); AST/SGOT 13 U/L (<40); Albumin 2.9 gm/dL (3.2-5.2); Albumin/Globulin Ratio 1.1 (1.0-2.3); Alkaline Phosphatase 46 U/L (39-117); Bilirubin,Direct < 0.2 mg/dL (0-0.3); Bilirubin,Total < 0.2 mg/dL (0.1-1.0); Blood Urea Nitrogen 15 mg/dL (8-23); Calcium 8.2 mg/dL (8.6-10.4); Carbon Dioxide 28 mmol/L (22-30); Chloride 105 mmol/L (96-108); Globulin 2.6 gm/dL (2.2-3.7); Glomerular Filtration Rate 103; Glucose 145 mg/dL (70-105); Lactate Dehydrogenase 240 U/L (135-225); Phosphorous 2.8 mg/dL (2.5-4.5); Triglycerides 132 mg/dL (<150); Uric Acid 1.7 mg/dL (2.5-8.0)
--- NOTE | 2022-01-22 07:58 | Internal Med Progress Note ---
SUBJECTIVE Subjective Patient information: Note initiated : 01/22/22 at 7:57 am Service Date, if different from initiated Date: [] Patient: Armani Au a 66 y/o M admitted on 01/19/22 for alcohol withdraw. Chief Complaint: [] Interval history: History of present illness: Mr. Au is a 66 year old M Patient presents to [facility] Monday night for alcohol withdrawal. He has a history of alcohol-related seizure activity. He drinks a fifth of vodka daily In cor[place], he has been on IV Ativan with elevated CIWA scores and they have also been using Librium as they are running low on Ativan. They must be out of bed and are looking elsewhere for transfer. Chest x-ray report done at [place] reported left lower lobe consolidation. We will check a CBC and procalcitonin to evaluate for pneumonia. Patient does carry history of depression/PTSD possibly CAD and CHF as well as asthma obesity and of course alcohol abuse. Patient has a history of CAD with stents and is on Eliquis he says that Eliquis is for his heart. Patient has a history of COPD is on 4 L of oxygen day and night. He also wears a CPAP machine at night for DANE. Has a cough but states this is chronic. Also complains of headaches 01/20 Patient found to be hypercapnic with respiratory acidosis upon arrival yesterday was placed on BiPAP. Patient became quite agitated at times and did require heavy sedation. Over time his work of breathing increased and concern for airway compromise with IV sedation patient required intubation. Started on acute exacerbation COPD treatment yesterday for bilateral wheezing and severely diminished lung sounds. FEUrea <35%, FENa <1% 01/21 Patient doing relatively well on CPAP trial today. Good urine output. CBC unremarkable other than anemia. ABG this morning looks improved. We will attempt sedation vacation and see how he is neurologically. Hopefully we can extubate tomorrow morning. 01/22 Sedated on the vent. Good urine output. Undergoing CPAP trial this time. Will need sedation vacation to eluate neurological status and hopefully extubate today. Review of system: Unable obtain given sedated on the vent Constitutional Vitals: Vital Signs Temp Pulse Resp BP Pulse Ox O2 Del Method O2 Flow Rate 97.4 F 68 16 106/61 97 5 01/22/22 07:00 01/22/22 07:29 01/22/22 07:29 01/22/22 07:00 01/22/22 07:24 01/22/22 02:00 01/19/22 22:01 Period Temp Pulse Resp BP Sys/Gonzales Pulse Ox O2 Del Method O2 Flow Rate Last 24 Hr 97.3 F-98.1 F 58-82 13-22 106-167/55-106 93-100 Mechanical Ventilation-Mechanical Ventilation Intake and Output 01/21/22 01/22/22 01/22/22 21:59 05:59 13:59 Intake Total 575 2206 Output Total 638 855 210 Balance -63 1351 -210 Weight 114.215 kg Intake & Output: Intake & Output 01/21/22 01/22/22 01/22/22 21:59 05:59 13:59 Intake Total 575 2206 Output Total 638 855 210 Balance -63 1351 -210 Weight 114.215 kg Intake: IV 470 1364 Sodium Chloride 0.9% 1,000 ml @ 1000 120 mls/hr IV .Q8H20M SARAH Rx#: [id number] Sodium Chloride 0.9% 250 ml @ 250 20 mls/hr IV .[id number] SARAH Rx#: [id number] Versed 50 mg In Sodium Chloride 89 121 0.9% 90 ml @ 1 MG/HR 2 mls/hr IV Q12H SARAH Rx#:[id number] Diprivan 1,000 mg In Premix 1 131 243 Bag @ 5 MCG/KG/MIN 3.352 mls/hr IV .Q24H SARAH Rx#:[id number] Tube Feeding 15 782 GI Tube Flush 90 60 Output: Gastric Drainage 190 Right Nare 190 Urine Catheter Amount 448 855 210 Other: Urine Appearance Sediment Clear Sediment Uretheral (Damon) Sediment Urine Color Pale Pale Yellow Uretheral (Damon) Dark Yellow Exam: General: Sedated on the vent no acute Distress, obese Eyes/N/T: PERRL, Head/Neck: neck supple, CV: RRR, No murmurs, Pulm: mildly diminished b/l, no wheezing today Abd: soft, protuberant, nontender, + BS x4 Ext: no clubbing/cyanosis, 1+ b/l LE edema Neuro: Sedated on the vent, moves all extremities spontaneously, Skin: warm/dry OBJ DATA Labs CBC & Chem 7: 01/21/22 05:18 01/22/22 05:29 Labs: Abnormal Lab Results 01/22/22 01/21/22 01/21/22 05:29 07:08 05:18 RBC 4.18 L Hgb 10.6 L Hct 34.9 L MCH 25.4 L MCHC 30.4 L RDW 16.5 H MPV 11.8 H Neut % (Auto) 83.8 H Lymph % (Auto) 8.6 L Lymph # (Auto) 0.54 L Seg Neutrophils % Lymphocytes % Reactive Lymphocytes RBC Morphology Hypochromasia Poikilocytosis Anisocytosis POC pH POC pCO2 53.9 H* POC pO2 POC HCO3 29.6 H POC Total CO2 31.0 H POC ABG Base Excess 4.0 H ABG Lactic Acid Hgb O2 Saturation Anion Gap 7.0 L Creatinine 0.6 L Glucose 145 H Uric Acid 1.7 L Calcium 8.2 L Phosphorus Lactate Dehydrogenase 240 H Total Protein 5.5 L Albumin 2.9 L Urine Protein Urine Occult Blood Urine RBC Urine WBC Hyaline Casts Urine Mucus 01/21/22 01/20/22 01/20/22 05:17 15:30 10:08 RBC Hgb Hct MCH MCHC RDW MPV Neut % (Auto) Lymph % (Auto) Lymph # (Auto) Seg Neutrophils % Lymphocytes % Reactive Lymphocytes RBC Morphology Hypochromasia Poikilocytosis Anisocytosis POC pH 7.33 L POC pCO2 61.8 H* POC pO2 63 L POC HCO3 32.5 H POC Total CO2 34.0 H POC ABG Base Excess 7.0 H ABG Lactic Acid Hgb O2 Saturation 89.0 L Anion Gap Creatinine Glucose 168 H Uric Acid Calcium 8.5 L Phosphorus 2.3 L Lactate Dehydrogenase 243 H Total Protein Albumin Urine Protein 30 mg/dl A Urine Occult Blood Large A Urine RBC 174 H Urine WBC 6 H Hyaline Casts 8 H Urine Mucus Many A 01/20/22 01/20/22 01/20/22 05:39 05:39 05:30 RBC 4.36 L Hgb 11.1 L Hct 37.1 L MCH 25.5 L MCHC 29.9 L RDW 16.5 H MPV 10.7 H Neut % (Auto) 89.3 H Lymph % (Auto) 7.0 L Lymph # (Auto) 0.56 L Seg Neutrophils % 83 H Lymphocytes % 2 L Reactive Lymphocytes 9 H RBC Morphology Abnormal A Hypochromasia 2+ A Poikilocytosis 1+ A Anisocytosis 1+ A POC pH POC pCO2 POC pO2 POC HCO3 POC Total CO2 POC ABG Base Excess ABG Lactic Acid Hgb O2 Saturation Anion Gap Creatinine Glucose 160 H Uric Acid Calcium Phosphorus Lactate Dehydrogenase 294 H Total Protein Albumin Urine Protein Urine Occult Blood Urine RBC Urine WBC Hyaline Casts Urine Mucus 01/20/22 01/20/22 01/19/22 02:10 00:56 23:59 RBC Hgb Hct MCH MCHC RDW MPV Neut % (Auto) Lymph % (Auto) Lymph # (Auto) Seg Neutrophils % Lymphocytes % Reactive Lymphocytes RBC Morphology Hypochromasia Poikilocytosis Anisocytosis POC pH 7.31 L 7.28 L 7.29 L POC pCO2 68.3 H* 70.5 H* 69.0 H* POC pO2 53 L 50 L POC HCO3 34.5 H 33.4 H 33.3 H POC Total CO2 37.0 H 36.0 H 35.0 H POC ABG Base Excess 8.0 H 7.0 H 7.0 H ABG Lactic Acid 0.3 L < 0.3 L 0.4 L Hgb O2 Saturation 81.0 L 79.0 L Anion Gap Creatinine Glucose Uric Acid Calcium Phosphorus Lactate Dehydrogenase Total Protein Albumin Urine Protein Urine Occult Blood Urine RBC Urine WBC Hyaline Casts Urine Mucus 01/19/22 01/19/22 01/19/22 22:49 14:51 14:13 RBC Hgb Hct MCH MCHC RDW MPV Neut % (Auto) Lymph % (Auto) Lymph # (Auto) Seg Neutrophils % Lymphocytes % Reactive Lymphocytes RBC Morphology Hypochromasia Poikilocytosis Anisocytosis POC pH 7.27 L 7.26 L POC pCO2 76.3 H* 71.3 H* POC pO2 79 L POC HCO3 34.8 H 31.9 H POC Total CO2 37.0 H 34.0 H POC ABG Base Excess 8.0 H 5.0 H ABG Lactic Acid 0.4 L < 0.3 L Hgb O2 Saturation 93.0 L Anion Gap Creatinine 0.6 L Glucose Uric Acid Calcium Phosphorus Lactate Dehydrogenase 304 H Total Protein Albumin Urine Protein Urine Occult Blood Urine RBC Urine WBC Hyaline Casts Urine Mucus Meds: Medications Acetaminophen (Acetaminophen 325 Mg Tablet) 650 mg PO Q6HP PRN; Protocol PRN Reason: Per Pain Protocol/Fever > 101 Hydrocodone Bitart/Acetaminophen (Hydrocodone/Apap 5/325mg Tablet) 1 tab PO Q4HP PRN PRN Reason: PAIN LEVEL 3-6 Albuterol/Ipratropium (Ipratropium/Albuterol 3 Ml Ampul.Neb) 3 ml NEB Q4HP PRN PRN Reason: Shortness Of Breath Last Admin: 01/21/22 06:38 Dose: 3 ml Albuterol/Ipratropium (Ipratropium/Albuterol 3 Ml Ampul.Neb) 3 ml NEB Q6HRT [facility] Last Admin: 01/22/22 07:15 Dose: 3 ml Atorvastatin Calcium (Atorvastatin 40 Mg Tablet) 40 mg PO QHS [facility] Last Admin: 01/21/22 21:03 Dose: Not Given Budesonide (Budesonide 0.5 Mg/2 Ml Ampul.Neb) 0.5 mg NEB Q12 [facility] Last Admin: 01/22/22 07:15 Dose: 0.5 mg Chlordiazepoxide HCl (Chlordiazepoxide 25 Mg Capsule) 50 mg PO Q4HP PRN PRN Reason: Alcohol Withdrawal/Assess CIWA Chlorhexidine Gluconate (Chlorhexidine Gluconate 1 Ml Oral.Merissa) 15 ml SWABMOUTH BID [facility] Last Admin: 01/21/22 21:03 Dose: 15 ml Diazepam (Diazepam 10 Mg/2 Ml Syringe) 5 mg IV Q2HP PRN PRN Reason: Alcohol Withdrawal/Assess CIWA Docusate Sodium (Docusate Sodium 10 Mg/Ml Ml) 100 mg PO BID [facility] Last Admin: 01/21/22 21:03 Dose: 100 mg Enoxaparin Sodium (Enoxaparin 60 Mg/0.6 Ml Syringe) 60 mg SQ BID [facility] Last Admin: 01/21/22 21:02 Dose: 60 mg Fentanyl (Fentanyl 100 Mcg/2 Ml Vial) 25 - 50 mcg IV Q1HP PRN; Protocol PRN Reason: Per Pain Protocol Last Admin: 01/22/22 02:45 Dose: 50 mcg Folic Acid (Folic Acid 1 Mg Tablet) 1 mg PO DAILY [facility] Last Admin: 01/21/22 08:58 Dose: 1 mg Gabapentin (Gabapentin 400 Mg Capsule) 400 mg PO TID [facility] Last Admin: 01/21/22 21:02 Dose: 400 mg Haloperidol Lactate (Haloperidol Lactate 5 Mg/Ml Vial) 0.5 mg IM Q2HP PRN PRN Reason: Alcohol Withdrawal/Assess CIWA Hydralazine HCl (Hydralazine 20 Mg/Ml Vial) 0 mg IV Q2HP PRN PRN Reason: Hypertension Potassium Chloride 40 meq/ (Dextrose) 520 mls @ 130 mls/hr IV UD PRN PRN Reason: Potassium < 3 Magnesium Sulfate (Magnesium Sulfate) 2 gm in 50 mls @ 50 mls/hr IV UD PRN PRN Reason: Magnesium </= 1.6 Thiamine HCl 100 mg/ Sodium (Chloride) 51 mls @ 50 mls/hr IV DAILY SARAH Last Infusion: 01/21/22 11:31 Dose: Infused Sodium Chloride (Sodium Chloride 0.9%) 1,000 mls @ 120 mls/hr IV .Q8H20M SARAH Last Admin: 01/22/22 02:17 Dose: 85 mls/hr Sodium Chloride (Sodium Chloride 0.9%) 250 mls @ 20 mls/hr IV .[id number] SARAH Last Admin: 01/21/22 21:19 Dose: 20 mls/hr Propofol 1,000 mg/ Premix 100 mls @ 3.352 mls/hr IV .Q24H SARAH; Protocol Last Admin: 01/22/22 05:13 Dose: 50 mcg/kg/min, 33.516 mls/hr Midazolam HCl 50 mg/ Sodium (Chloride) 100 mls @ 2 mls/hr IV Q12H SARAH; Protocol Last Admin: 01/22/22 04:11 Dose: 5 mg/hr, 10 mls/hr Propofol 1,000 mg/ Premix 100 mls @ 3.352 mls/hr IV .Q24H SARAH; Protocol Last Admin: 01/21/22 11:29 Dose: Not Given Iron Carb/Multivit/[place]/Folic Acid (Multivit,Ther Iron,Ca,Fa & Min 1 Tablet) 1 tab PO DAILY SARAH Last Admin: 01/21/22 08:58 Dose: 1 tab Labetalol HCl (Labetalol 5 Mg/Ml Ml) 0 mg IV Q2HP PRN PRN Reason: Hypertension Lorazepam (Lorazepam 2 Mg/Ml Vial) 0 mg IV Q4HP PRN; Protocol PRN Reason: Alcohol Withdrawal/Assess CIWA Last Admin: 01/21/22 20:46 Dose: 2 mg Methylprednisolone Sodium Succinate (Methylprednisolone Sod Succ 40 Mg/Ml Vial) 40 mg IV Q12 [facility] Last Admin: 01/21/22 21:04 Dose: 40 mg Metoclopramide HCl (Metoclopramide 10 Mg/2 Ml Vial) 10 mg IV Q6HP PRN PRN Reason: Nausea And Vomiting Metoprolol Tartrate (Metoprolol Tartrate 25 Mg Tablet) 25 mg PO BID [facility] Last Admin: 01/21/22 21:02 Dose: 25 mg Montelukast Sodium (Montelukast 10 Mg Tablet) 10 mg PO QHS [facility] Last Admin: 01/21/22 21:02 Dose: 10 mg Ondansetron HCl (Ondansetron 4 Mg/2 Ml Vial) 4 mg IV Q4HP PRN PRN Reason: Nausea And Vomiting Last Admin: 01/20/22 00:10 Dose: 4 mg Pantoprazole Sodium (Pantoprazole 40 Mg Vial) 40 mg IV QAMAC [facility] Last Admin: 01/21/22 08:59 Dose: 40 mg Polyethylene Glycol (Polyethylene Glycol 3350 17 Gm Packet) 17 gm PO DAILYP PRN PRN Reason: Constipation Potassium Chloride (Potassium Chloride 20 Meq Tablet) 40 meq PO UD PRN PRN Reason: Potssium is 3-3.5 Potassium Chloride (Potassium Chloride 20 Meq Tablet) 40 meq PO UD PRN PRN Reason: Potassium < 3 Senna (Sennosides 1 Tablet) 2 tab PO DAILYP PRN PRN Reason: Constipation Sodium Chloride (0.9 % Sodium Chloride 10 Ml Syringe) 10 ml IV Q8 [facility] Last Admin: 01/22/22 06:09 Dose: 10 ml Sodium Chloride (0.9 % Sodium Chloride 10 Ml Syringe) 10 ml IV Q12 [facility] Last Admin: 01/21/22 21:03 Dose: 10 ml Venlafaxine HCl (Venlafaxine 75 Mg Tablet) 112.5 mg PO BID [facility] Last Admin: 01/21/22 21:02 Dose: 112.5 mg A/P Narrative A/P Narrative: A: *Alcohol abuse w/Severe Alcohol Withdrawal: *Acute hypoxic/hypercapnic respiratory failure: 2/2 above. 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 *Encephalopathy: 2/2 above *AECOPD (4L O2@home): - *Tobacco abuse: *Obesity: bmi 32 *DANE on cpap: *CAD w/stent: on eliquis -echo with good EF and diastolic fxn *Depression/PTSD: *Chronic pain/Neuropathy: *GERD: P: -vent management, versed gtt, sedation vacations and cpap trials -CIWA with prn benzo, vitamins/thiamine/folate -steroids(wean), nebs and prn nebs -IVF maintenance while npo -NGT and TF's -home cpap when off ventilator -Smoking cessation counseling -pt/ot -ppx: lovenox bid while off eliquis / ppi Time Spent With Patient Time: Total time spent is greater than 50% in coordination of care (as documented) at patient's floor/unit and/or counseling patient: Critical Care Time: Yes Total Critical Care Time: 45 QUALITY VTE Deep Vein Thrombosis/Pulmonary Embolism Present on Admission: No Restraints Restraint In Place: Yes Reason for restraints: protect against lines
[2022-01-22] MEDS: PANTOPRAZOLE 40 MG VIAL IV SCH (08:15)
[2022-01-22] MEDS: MULTIVIT,THER IRON,CA,FA & MIN 1 TABLET PO SCH (08:15)
[2022-01-22] MEDS: DOCUSATE SODIUM 10 MG/ML ML PO SCH ×3 (08:15→22:36)
[2022-01-22] MEDS: methylPREDNISolone SOD SUCC 40 MG/ML VIAL IV SCH ×2 (08:15→20:57)
[2022-01-22] MEDS: METOPROLOL TARTRATE 25 MG TABLET PO SCH ×2 (08:15→20:57)
[2022-01-22] MEDS: FOLIC ACID 1 MG TABLET PO SCH (08:15)
[2022-01-22] MEDS: ENOXAPARIN 60 MG/0.6 ML SYRINGE SQ SCH ×2 (08:26→20:56)
[2022-01-22] MEDS: VENLAFAXINE 75 MG TABLET PO SCH ×2 (08:26→20:57)
[2022-01-22] MEDS: GABAPENTIN 400 MG CAPSULE PO SCH ×3 (08:26→20:57)
[2022-01-22] MEDS: CHLORHEXIDINE GLUCONATE 1 ML ORAL.SOL SWABMOUTH SCH ×2 (08:27→20:56)
[2022-01-22] MEDS: THIAMINE 100 MG in 0.9 % SODIUM CHLORIDE 50 ML IV SCH (09:29)
[2022-01-22] MEDS: 0.9 % SODIUM CHLORIDE 250 ML IV SCH ×3 (09:29→20:59)
[2022-01-22] MEDS: LORazepam 2 MG/ML VIAL IV PRN ×5 (10:45→18:37)
[2022-01-22] MEDS: HALOPERIDOL LACTATE 5 MG/ML VIAL IM PRN (18:39)
[2022-01-22] MEDS: HYDROcodone/APAP 5/325MG TABLET PO PRN (19:19)
[2022-01-22] MEDS: chlordiazePOXIDE 25 MG CAPSULE PO PRN ×2 (19:35→23:56)
[2022-01-22] MEDS: DIAZEPAM 10 MG/2 ML SYRINGE IV PRN ×2 (20:01→22:04)
[2022-01-22] MEDS ORDERED: DIAZEPAM 10 MG/2 ML SYRINGE ONE (20:11)
[2022-01-22] MEDS: MONTELUKAST 10 MG TABLET PO SCH (20:57)
[2022-01-22] MEDS: ATORVASTATIN 40 MG TABLET PO SCH (20:57)
[2022-01-23] MEDS: HYDROcodone/APAP 5/325MG TABLET PO PRN ×4 (00:24→15:10)
[2022-01-23] MEDS: IPRATROPIUM/ALBUTEROL 3 ML AMPUL.NEB NEB SCH ×2 (00:26→06:54)
[2022-01-23] MEDS: IPRATROPIUM/ALBUTEROL 3 ML AMPUL.NEB NEB PRN ×3 (00:28→18:35)
[2022-01-23] MEDS: DIAZEPAM 10 MG/2 ML SYRINGE IV PRN ×8 (02:00→21:03)
[2022-01-23] MEDS: ACETAMINOPHEN 325 MG TABLET PO PRN (02:20)
[2022-01-23] MEDS: HALOPERIDOL LACTATE 5 MG/ML VIAL IM PRN (02:21)
[2022-01-23] MEDS: chlordiazePOXIDE 25 MG CAPSULE PO PRN ×3 (03:00→21:03)
[2022-01-23] MEDS: 0.9 % SODIUM CHLORIDE 1,000 ML IV SCH ×4 (05:17→16:07)
[2022-01-23] MEDS: 0.9 % SODIUM CHLORIDE 10 ML SYRINGE IV SCH ×6 (06:05→21:02)
[2022-01-23 06:27] LABS: Basophils # (Auto) 0 K/mcL (0.00-0.30); Basophils % (Auto) 0 % (0.0-2.0); Eosinophils # (Auto) 0 K/mcL (0.00-0.70); Eosinophils % (Auto) 0 % (0.0-7.0); Hematocrit 31.5 % (40.1-51.0); Hemoglobin 9.7 g/dL (13.7-17.5); Lymphocytes # (Auto) 0.83 K/mcL (1.50-4.80); Lymphocytes % (Auto) 13.3 % (15.5-49.0); Mean Corpuscular HGB Conc 30.8 g/dL (31.0-36.0); Monocytes # (Auto) 0.61 K/mcL (0.10-0.90); Monocytes % (Auto) 9.8 % (1.0-12.0); Neutrophils % (Auto) 76.1 % (38.0-78.0); Platelet Count 179 K/mcL (140-440); RBC 3.75 M/mcL (4.63-6.08); Red Cell Distribution Width 17.2 % (11.5-14.5); WBC 6.2 K/mcL (4.5-11.0)
[2022-01-23 06:53] LABS: Blood Urea Nitrogen 11 mg/dL (8-23); Calcium 8.4 mg/dL (8.6-10.4); Carbon Dioxide 34 mmol/L (22-30); Chloride 103 mmol/L (96-108); Glomerular Filtration Rate 103; Glucose 112 mg/dL (70-105)
[2022-01-23 06:54] LABS: ALT/SGPT 17 U/L (<40); AST/SGOT 18 U/L (<40); Albumin 3.4 gm/dL (3.2-5.2); Albumin/Globulin Ratio 1.5 (1.0-2.3); Alkaline Phosphatase 50 U/L (39-117); Bilirubin,Direct < 0.2 mg/dL (0-0.3); Bilirubin,Total 0.2 mg/dL (0.1-1.0); Globulin 2.3 gm/dL (2.2-3.7); Lactate Dehydrogenase 240 U/L (135-225); Phosphorous 3.2 mg/dL (2.5-4.5); Triglycerides 103 mg/dL (<150); Uric Acid 1.8 mg/dL (2.5-8.0)
[2022-01-23] MEDS ORDERED: diphenhydrAMINE 50 MG/ML VIAL IV ONE (07:03)
[2022-01-23] MEDS: PANTOPRAZOLE 40 MG VIAL IV SCH (07:12)
[2022-01-23] MEDS ORDERED: diphenhydrAMINE 50 MG/ML VIAL ONE (07:17)
--- NOTE | 2022-01-23 08:10 | Internal Med Progress Note ---
SUBJECTIVE Subjective Patient information: Note initiated : 01/23/22 at 8:04 am Service Date, if different from initiated Date: [] Patient: Armani Au a 66 y/o M admitted on 01/19/22 for alcohol withdraw. Chief Complaint: [] Interval history: History of present illness: Mr. Au is a 66 year old M Patient presents to [facility] Monday night for alcohol withdrawal. He has a history of alcohol-related seizure activity. He drinks a fifth of vodka daily In [place], he has been on IV Ativan with elevated CIWA scores and they have also been using Librium as they are running low on Ativan. They must be out of bed and are looking elsewhere for transfer. Chest x-ray report done at [place] reported left lower lobe consolidation. We will check a CBC and procalcitonin to evaluate for pneumonia. Patient does carry history of depression/PTSD possibly CAD and CHF as well as asthma obesity and of course alcohol abuse. Patient has a history of CAD with stents and is on Eliquis he says that Eliquis is for his heart. Patient has a history of COPD is on 4 L of oxygen day and night. He also wears a CPAP machine at night for DANE. Has a cough but states this is chronic. Also complains of headaches 01/20 Patient found to be hypercapnic with respiratory acidosis upon arrival yesterday was placed on BiPAP. Patient became quite agitated at times and did require heavy sedation. Over time his work of breathing increased and concern for airway compromise with IV sedation patient required intubation. Started on acute exacerbation COPD treatment yesterday for bilateral wheezing and severely diminished lung sounds. FEUrea <35%, FENa <1% 01/21 Patient doing relatively well on CPAP trial today. Good urine output. CBC unremarkable other than anemia. ABG this morning looks improved. We will attempt sedation vacation and see how he is neurologically. Hopefully we can extubate tomorrow morning. 01/22 Sedated on the vent. Good urine output. Undergoing CPAP trial this time. Will need sedation vacation to eluate neurological status and hopefully extubate today. 01/23 Patient little restless at times or night but calm in the morning. Extubated yesterday at noon. On 5 L oxygen mask. Vital signs stable. Still requiring withdrawal medications. Mentation waxes and wanes. Review of system: Unable to obtain given altered mental state Constitutional Vitals: Vital Signs Temp Pulse Resp BP Pulse Ox O2 Del Method O2 Flow Rate 98 F 88 20 149/90 98 5 01/23/22 05:52 01/23/22 07:01 01/23/22 07:01 01/23/22 07:01 01/23/22 07:01 01/23/22 02:00 01/23/22 06:01 Period Temp Pulse Resp BP Sys/Gonzales Pulse Ox O2 Del Method O2 Flow Rate Last 24 Hr 98 F-100.9 F 69-114 16-33 117-165/71-112 92-100 Nasal Cannula- Oxymask 4-5 Intake and Output 01/22/22 01/23/22 01/23/22 21:59 05:59 13:59 Intake Total 1447 2311 1000 Output Total 800 1575 375 Balance 647 736 625 Weight 114.206 kg Intake & Output: Intake & Output 01/22/22 01/23/22 01/23/22 21:59 05:59 13:59 Intake Total 1447 2311 1000 Output Total 800 1575 375 Balance 647 736 625 Weight 114.206 kg Intake: IV 2888 473 9512 Sodium Chloride 0.9% 1,000 ml @ 2056 802 0277 120 mls/hr IV .Q8H20M [facility] Rx#: [id number] Oral 0 Tube Feeding 164 721 GI Tube Flush 250 700 Output: Urine Catheter Amount 800 1575 375 Other: Urine Appearance Sediment Clear Clear Uretheral (Damon) Sediment Clear Urine Color Pale Yellow Yellow Pale Uretheral (Damon) Yellow Yellow Pale Urine Odor Normal # Bowel Movements 0 # of times incontinent of 0 Bowels Exam: General: Partially sedated with withdrawal medication, no acute distress, obese Eyes/N/T: PERRL, Head/Neck: neck supple, CV: RRR, No murmurs, Pulm: mildly diminished b/l, occasional wheezing b/l Abd: soft, protuberant, nontender, + BS x4 Ext: no clubbing/cyanosis, mild b/l LE edema Neuro: Follows some commands, almost verbalizes with some question, moves all extremities spontaneously, Skin: warm/dry OBJ DATA Labs CBC & Chem 7: 01/23/22 05:29 01/23/22 05:29 Labs: Abnormal Lab Results 01/23/22 01/23/22 01/22/22 05:29 05:29 10:28 RBC 3.75 L Hgb 9.7 L Hct 31.5 L MCH 25.9 L MCHC 30.8 L RDW 17.2 H MPV 11.0 H Immature Gran % (Auto) 0.8 H Neut % (Auto) Lymph % (Auto) 13.3 L Lymph # (Auto) 0.83 L Seg Neutrophils % Lymphocytes % Reactive Lymphocytes RBC Morphology Hypochromasia Poikilocytosis Anisocytosis POC pH 7.32 L POC pCO2 56.4 H* POC pO2 POC HCO3 29.2 H POC Total CO2 31.0 H POC ABG Base Excess Hgb O2 Saturation Carbon Dioxide 34 H Anion Gap 4.0 L Creatinine 0.6 L Glucose 112 H Uric Acid 1.8 L Calcium 8.4 L Phosphorus Lactate Dehydrogenase 240 H Total Protein 5.7 L Albumin Urine Protein Urine Occult Blood Urine RBC Urine WBC Hyaline Casts Urine Mucus 01/22/22 01/21/22 01/21/22 05:29 07:08 05:18 RBC 4.18 L Hgb 10.6 L Hct 34.9 L MCH 25.4 L MCHC 30.4 L RDW 16.5 H MPV 11.8 H Immature Gran % (Auto) Neut % (Auto) 83.8 H Lymph % (Auto) 8.6 L Lymph # (Auto) 0.54 L Seg Neutrophils % Lymphocytes % Reactive Lymphocytes RBC Morphology Hypochromasia Poikilocytosis Anisocytosis POC pH POC pCO2 53.9 H* POC pO2 POC HCO3 29.6 H POC Total CO2 31.0 H POC ABG Base Excess 4.0 H Hgb O2 Saturation Carbon Dioxide Anion Gap 7.0 L Creatinine 0.6 L Glucose 145 H Uric Acid 1.7 L Calcium 8.2 L Phosphorus Lactate Dehydrogenase 240 H Total Protein 5.5 L Albumin 2.9 L Urine Protein Urine Occult Blood Urine RBC Urine WBC Hyaline Casts Urine Mucus 01/21/22 01/20/22 01/20/22 05:17 15:30 10:08 RBC Hgb Hct MCH MCHC RDW MPV Immature Gran % (Auto) Neut % (Auto) Lymph % (Auto) Lymph # (Auto) Seg Neutrophils % Lymphocytes % Reactive Lymphocytes RBC Morphology Hypochromasia Poikilocytosis Anisocytosis POC pH 7.33 L POC pCO2 61.8 H* POC pO2 63 L POC HCO3 32.5 H POC Total CO2 34.0 H POC ABG Base Excess 7.0 H Hgb O2 Saturation 89.0 L Carbon Dioxide Anion Gap Creatinine Glucose 168 H Uric Acid Calcium 8.5 L Phosphorus 2.3 L Lactate Dehydrogenase 243 H Total Protein Albumin Urine Protein 30 mg/dl A Urine Occult Blood Large A Urine RBC 174 H Urine WBC 6 H Hyaline Casts 8 H Urine Mucus Many A 01/20/22 05:30 RBC Hgb Hct MCH MCHC RDW MPV Immature Gran % (Auto) Neut % (Auto) Lymph % (Auto) Lymph # (Auto) Seg Neutrophils % 83 H Lymphocytes % 2 L Reactive Lymphocytes 9 H RBC Morphology Abnormal A Hypochromasia 2+ A Poikilocytosis 1+ A Anisocytosis 1+ A POC pH POC pCO2 POC pO2 POC HCO3 POC Total CO2 POC ABG Base Excess Hgb O2 Saturation Carbon Dioxide Anion Gap Creatinine Glucose Uric Acid Calcium Phosphorus Lactate Dehydrogenase Total Protein Albumin Urine Protein Urine Occult Blood Urine RBC Urine WBC Hyaline Casts Urine Mucus Meds: Medications Acetaminophen (Acetaminophen 325 Mg Tablet) 650 mg PO Q6HP PRN; Protocol PRN Reason: Per Pain Protocol/Fever > 101 Last Admin: 01/23/22 02:20 Dose: 650 mg Hydrocodone Bitart/Acetaminophen (Hydrocodone/Apap 5/325mg Tablet) 1 tab PO Q4HP PRN PRN Reason: PAIN LEVEL 3-6 Last Admin: 01/23/22 04:48 Dose: 1 tab Albuterol/Ipratropium (Ipratropium/Albuterol 3 Ml Ampul.Neb) 3 ml NEB Q4HP PRN PRN Reason: Shortness Of Breath Last Admin: 01/23/22 00:28 Dose: 3 ml Albuterol/Ipratropium (Ipratropium/Albuterol 3 Ml Ampul.Neb) 3 ml NEB Q6HRT SARAH Last Admin: 01/23/22 06:54 Dose: Not Given Atorvastatin Calcium (Atorvastatin 40 Mg Tablet) 40 mg PO QHS SARAH Last Admin: 01/22/22 20:57 Dose: 40 mg Budesonide (Budesonide 0.5 Mg/2 Ml Ampul.Neb) 0.5 mg NEB Q12 SARAH Last Admin: 01/22/22 19:20 Dose: 0.5 mg Chlordiazepoxide HCl (Chlordiazepoxide 25 Mg Capsule) 50 mg PO Q4HP PRN PRN Reason: Alcohol Withdrawal/Assess CIWA Last Admin: 01/23/22 07:13 Dose: 50 mg Chlorhexidine Gluconate (Chlorhexidine Gluconate 1 Ml Oral.Merissa) 15 ml SWABMOUTH BID [facility] Last Admin: 01/22/22 20:56 Dose: 15 ml Diazepam (Diazepam 10 Mg/2 Ml Syringe) 0 mg IV UD PRN; Protocol PRN Reason: Alcohol Withdrawal/Assess CIWA Last Admin: 01/23/22 04:59 Dose: 10 mg Docusate Sodium (Docusate Sodium 10 Mg/Ml Ml) 100 mg PO BID [facility] Last Admin: 01/22/22 22:36 Dose: 100 mg Enoxaparin Sodium (Enoxaparin 60 Mg/0.6 Ml Syringe) 60 mg SQ BID [facility] Last Admin: 01/22/22 20:56 Dose: 60 mg Fentanyl (Fentanyl 100 Mcg/2 Ml Vial) 25 - 50 mcg IV Q1HP PRN; Protocol PRN Reason: Per Pain Protocol Last Admin: 01/22/22 11:20 Dose: 50 mcg Folic Acid (Folic Acid 1 Mg Tablet) 1 mg PO DAILY [facility] Last Admin: 01/22/22 08:15 Dose: 1 mg Gabapentin (Gabapentin 400 Mg Capsule) 400 mg PO TID [facility] Last Admin: 01/22/22 20:57 Dose: 400 mg Haloperidol Lactate (Haloperidol Lactate 5 Mg/Ml Vial) 0.5 mg IM Q2HP PRN PRN Reason: Alcohol Withdrawal/Assess CIWA Last Admin: 01/23/22 02:21 Dose: 0.5 mg Hydralazine HCl (Hydralazine 20 Mg/Ml Vial) 0 mg IV Q2HP PRN PRN Reason: Hypertension Last Admin: 01/22/22 11:10 Dose: 10 mg Potassium Chloride 40 meq/ (Dextrose) 520 mls @ 130 mls/hr IV UD PRN PRN Reason: Potassium < 3 Magnesium Sulfate (Magnesium Sulfate) 2 gm in 50 mls @ 50 mls/hr IV UD PRN PRN Reason: Magnesium </= 1.6 Thiamine HCl 100 mg/ Sodium (Chloride) 51 mls @ 50 mls/hr IV DAILY [facility] Last Infusion: 01/22/22 12:05 Dose: Infused Sodium Chloride (Sodium Chloride 0.9%) 1,000 mls @ 120 mls/hr IV .Q8H20M [facility] Last Admin: 01/23/22 06:30 Dose: 125 mls/hr Sodium Chloride (Sodium Chloride 0.9%) 250 mls @ 20 mls/hr IV .[id number] [facility] Last Admin: 01/22/22 20:59 Dose: Not Given Propofol 1,000 mg/ Premix 100 mls @ 3.352 mls/hr IV .Q24H [facility]; Protocol Last Titration: 01/22/22 10:30 Dose: 0 mcg/kg/min, 0 mls/hr Midazolam HCl 50 mg/ Sodium (Chloride) 100 mls @ 2 mls/hr IV Q12H [facility]; Protocol Last Admin: 01/22/22 21:00 Dose: Not Given Propofol 1,000 mg/ Premix 100 mls @ 3.352 mls/hr IV .Q24H [facility]; Protocol Last Admin: 01/22/22 09:29 Dose: Not Given Iron Carb/Multivit/[place]/Folic Acid (Multivit,Ther Iron,Ca,Fa & Min 1 Tablet) 1 tab PO DAILY [facility] Last Admin: 01/22/22 08:15 Dose: 1 tab Labetalol HCl (Labetalol 5 Mg/Ml Ml) 0 mg IV Q2HP PRN PRN Reason: Hypertension Methylprednisolone Sodium Succinate (Methylprednisolone Sod Succ 40 Mg/Ml Vial) 40 mg IV Q12 [facility] Last Admin: 01/22/22 20:57 Dose: 40 mg Metoclopramide HCl (Metoclopramide 10 Mg/2 Ml Vial) 10 mg IV Q6HP PRN PRN Reason: Nausea And Vomiting Metoprolol Tartrate (Metoprolol Tartrate 25 Mg Tablet) 25 mg PO BID [facility] Last Admin: 01/22/22 20:57 Dose: 25 mg Montelukast Sodium (Montelukast 10 Mg Tablet) 10 mg PO QHS [facility] Last Admin: 01/22/22 20:57 Dose: 10 mg Ondansetron HCl (Ondansetron 4 Mg/2 Ml Vial) 4 mg IV Q4HP PRN PRN Reason: Nausea And Vomiting Last Admin: 01/20/22 00:10 Dose: 4 mg Pantoprazole Sodium (Pantoprazole 40 Mg Vial) 40 mg IV QAMAC [facility] Last Admin: 01/23/22 07:12 Dose: 40 mg Polyethylene Glycol (Polyethylene Glycol 3350 17 Gm Packet) 17 gm PO DAILYP PRN PRN Reason: Constipation Potassium Chloride (Potassium Chloride 20 Meq Tablet) 40 meq PO UD PRN PRN Reason: Potssium is 3-3.5 Potassium Chloride (Potassium Chloride 20 Meq Tablet) 40 meq PO UD PRN PRN Reason: Potassium < 3 Senna (Sennosides 1 Tablet) 2 tab PO DAILYP PRN PRN Reason: Constipation Sodium Chloride (0.9 % Sodium Chloride 10 Ml Syringe) 10 ml IV Q8 [facility] Last Admin: 01/23/22 06:05 Dose: 10 ml Sodium Chloride (0.9 % Sodium Chloride 10 Ml Syringe) 10 ml IV Q12 [facility] Last Admin: 01/23/22 06:05 Dose: 10 ml Venlafaxine HCl (Venlafaxine 75 Mg Tablet) 112.5 mg PO BID [facility] Last Admin: 01/22/22 20:57 Dose: 112.5 mg A/P Narrative A/P Narrative: A: *Alcohol abuse w/Severe Alcohol Withdrawal and DT's: *Acute hypoxic/hypercapnic respiratory failure: 2/2 above. 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 at 1240 -on 5L oxymask *Probable aspiration pneumonitis: *Encephalopathy: 2/2 above, waxes/wanes, still in w/d *AECOPD (4L O2@home): - *Tobacco abuse: *Obesity: bmi 32 *DANE on cpap: *CAD w/stent: on eliquis -echo with good EF and diastolic fxn *Depression/PTSD: *Chronic pain/Neuropathy: *GERD: *Anemia, unknown chronicity: P: -monitor airway, prn suction, IS/Acapella -CIWA with prn benzo, vitamins/thiamine/folate -steroids(wean), nebs and prn nebs -O2 supp, IS/Acapella -TF's started until able to take po -home cpap -Smoking cessation counseling -pt/ot -ppx: lovenox bid while off eliquis / ppi Time Spent With Patient Time: Total time spent is greater than 50% in coordination of care (as documented) at patient's floor/unit and/or counseling patient: Critical Care Time: Yes Total Critical Care Time: 45 QUALITY VTE Deep Vein Thrombosis/Pulmonary Embolism Present on Admission: No Restraints Restraint In Place: Yes Reason for restraints: protect lines and pt.
[2022-01-23] MEDS: METOPROLOL TARTRATE 25 MG TABLET PO SCH ×2 (08:23→21:01)
[2022-01-23] MEDS: FOLIC ACID 1 MG TABLET PO SCH (08:23)
[2022-01-23] MEDS: MULTIVIT,THER IRON,CA,FA & MIN 1 TABLET PO SCH (08:23)
[2022-01-23] MEDS: GABAPENTIN 400 MG CAPSULE PO SCH ×3 (08:23→21:01)
[2022-01-23] MEDS: ENOXAPARIN 60 MG/0.6 ML SYRINGE SQ SCH ×2 (08:24→21:02)
[2022-01-23] MEDS: VENLAFAXINE 75 MG TABLET PO SCH ×2 (08:24→21:01)
[2022-01-23] MEDS: THIAMINE 100 MG in 0.9 % SODIUM CHLORIDE 50 ML IV SCH (08:31)
[2022-01-23] MEDS: CHLORHEXIDINE GLUCONATE 1 ML ORAL.SOL SWABMOUTH SCH ×2 (08:31→21:02)
[2022-01-23] MEDS: DOCUSATE SODIUM 10 MG/ML ML PO SCH ×2 (08:31→21:02)
[2022-01-23] MEDS: BUDESONIDE 0.5 MG/2 ML AMPUL.NEB NEB SCH ×2 (08:51→18:35)
[2022-01-23] MEDS: AZITHROMYCIN 500 MG in DEXTROSE 5% IN WATER 250 ML IV SCH (09:53)
[2022-01-23] MEDS: methylPREDNISolone SOD SUCC 40 MG/ML VIAL IV SCH ×2 (09:56→20:57)
[2022-01-23] MEDS: MIDAZOLAM HCL 50 MG in 0.9 % SODIUM CHLORIDE 90 ML IV SCH (11:24)
[2022-01-23] MEDS ORDERED: MIDAZOLAM HCL 50 MG in 0.9 % SODIUM CHLORIDE 90 ML IV PRN (14:30)
[2022-01-23] MEDS: MONTELUKAST 10 MG TABLET PO SCH (21:01)
[2022-01-23] MEDS: ATORVASTATIN 40 MG TABLET PO SCH (21:02)
[2022-01-24] MEDS: 0.9 % SODIUM CHLORIDE 1,000 ML IV SCH ×5 (00:25→17:58)
[2022-01-24] MEDS: DIAZEPAM 10 MG/2 ML SYRINGE IV PRN (00:56)
[2022-01-24] MEDS: HYDROcodone/APAP 5/325MG TABLET PO PRN ×3 (00:56→15:23)
[2022-01-24] MEDS: chlordiazePOXIDE 25 MG CAPSULE PO PRN ×3 (01:17→13:05)
[2022-01-24] MEDS: IPRATROPIUM/ALBUTEROL 3 ML AMPUL.NEB NEB PRN ×3 (04:32→19:00)
[2022-01-24] MEDS: ACETAMINOPHEN 325 MG TABLET PO PRN (04:39)
[2022-01-24] MEDS: 0.9 % SODIUM CHLORIDE 10 ML SYRINGE IV SCH ×5 (06:00→22:22)
[2022-01-24 06:47] LABS: ALT/SGPT 35 U/L (<40); AST/SGOT 29 U/L (<40); Albumin 3.3 gm/dL (3.2-5.2); Albumin/Globulin Ratio 1.3 (1.0-2.3); Alkaline Phosphatase 53 U/L (39-117); Bilirubin,Direct < 0.2 mg/dL (0-0.3); Bilirubin,Total 0.2 mg/dL (0.1-1.0); Blood Urea Nitrogen 12 mg/dL (8-23); Calcium 8.7 mg/dL (8.6-10.4); Carbon Dioxide 37 mmol/L (22-30); Chloride 100 mmol/L (96-108); Globulin 2.6 gm/dL (2.2-3.7); Glomerular Filtration Rate 103; Glucose 124 mg/dL (70-105); Lactate Dehydrogenase 251 U/L (135-225); Phosphorous 3.1 mg/dL (2.5-4.5); Triglycerides 85 mg/dL (<150); Uric Acid 2.2 mg/dL (2.5-8.0)
[2022-01-24] MEDS: PANTOPRAZOLE 40 MG VIAL IV SCH (07:53)
--- NOTE | 2022-01-24 08:13 | Internal Med Progress Note ---
SUBJECTIVE Subjective Patient information: Note initiated : 01/24/22 at 8:08 am Service Date, if different from initiated Date: [] Patient: Armani Au a 66 y/o M admitted on 01/19/22 for alcohol withdraw. Chief Complaint: [] Interval history: History of present illness: Mr. Au is a 66 year old M Patient presents to [facility] Monday night for alcohol withdrawal. He has a history of alcohol-related seizure activity. He drinks a fifth of vodka daily In [place], he has been on IV Ativan with elevated CIWA scores and they have also been using Librium as they are running low on Ativan. They must be out of bed and are looking elsewhere for transfer. Chest x-ray report done at [place] reported left lower lobe consolidation. We will check a CBC and procalcitonin to evaluate for pneumonia. Patient does carry history of depression/PTSD possibly CAD and CHF as well as asthma obesity and of course alcohol abuse. Patient has a history of CAD with stents and is on Eliquis he says that Eliquis is for his heart. Patient has a history of COPD is on 4 L of oxygen day and night. He also wears a CPAP machine at night for DANE. Has a cough but states this is chronic. Also complains of headaches 01/20 Patient found to be hypercapnic with respiratory acidosis upon arrival yesterday was placed on BiPAP. Patient became quite agitated at times and did require heavy sedation. Over time his work of breathing increased and concern for airway compromise with IV sedation patient required intubation. Started on acute exacerbation COPD treatment yesterday for bilateral wheezing and severely diminished lung sounds. FEUrea <35%, FENa <1% 01/21 Patient doing relatively well on CPAP trial today. Good urine output. CBC unremarkable other than anemia. ABG this morning looks improved. We will attempt sedation vacation and see how he is neurologically. Hopefully we can extubate tomorrow morning. 01/22 Sedated on the vent. Good urine output. Undergoing CPAP trial this time. Will need sedation vacation to eluate neurological status and hopefully extubate today. 01/23 Patient little restless at times or night but calm in the morning. Extubated yesterday at noon. On 5 L oxygen mask. Vital signs stable. Still requiring withdrawal medications. Mentation waxes and wanes. 01/24 Patient more awake and alert today. Able to have a conversation with him. Does complain of a headache and some nausea and upset stomach. He also has a cough which is somewhat productive and he does have shortness of breath but he says that is baseline. Review of Systems: denies fever/chills/vomiting/chest or abdominal pain/diarrhea. Otherwise see above. Constitutional Vitals: Vital Signs Temp Pulse Resp BP Pulse Ox O2 Del Method O2 Flow Rate 98.6 F 76 23 H 132/75 99 3 01/24/22 08:00 01/24/22 08:00 01/24/22 08:00 01/24/22 08:00 01/24/22 08:00 01/24/22 07:19 01/24/22 08:00 Period Temp Pulse Resp BP Sys/Gonzales Pulse Ox O2 Del Method O2 Flow Rate Last 24 Hr 97.8 F-98.6 F 73-94 15-25 106-149/54-91 92-100 Oxymask-Oxymask 3-5 Intake and Output 01/23/22 01/24/22 01/24/22 21:59 05:59 13:59 Intake Total 669 1747 140 Output Total 2024 1510 490 Balance -1356 237 -350 Weight 112.4 kg Intake & Output: Intake & Output 01/23/22 01/24/22 01/24/22 21:59 05:59 13:59 Intake Total 669 1747 140 Output Total 2024 1510 490 Balance -1356 237 -350 Weight 112.4 kg Intake: IV 385 996 Sodium Chloride 0.9% 1,000 ml @ 385 996 120 mls/hr IV .Q8H20M [facility] Rx#: [id number] Tube Feeding 224 691 140 GI Tube Flush 60 60 Output: Urine Catheter Amount 2024 1510 490 Other: Urine Appearance Clear Clear Clear Uretheral (Damon) Clear Urine Color Pale Pale Dark Yellow Uretheral (Damon) Pale Urine Odor Normal Exam: General: Somewhat drowsy but awake, no acute distress, obese Eyes/N/T: EOMI Head/Neck: neck supple, CV: RRR, No murmurs, Pulm: mildly diminished b/l, subtle rhonchi but no appreciable wheezing today Abd: soft, protuberant, nontender, + BS x4 Ext: no clubbing/cyanosis, mild b/l LE edema Neuro: Mentation much more clear today. Able to have a conversation with him, follows commands moves all extremities Skin: warm/dry OBJ DATA Labs CBC & Chem 7: 01/23/22 05:29 01/24/22 05:26 Labs: Abnormal Lab Results 01/24/22 01/23/22 01/23/22 05:26 05:29 05:29 RBC 3.75 L Hgb 9.7 L Hct 31.5 L MCH 25.9 L MCHC 30.8 L RDW 17.2 H MPV 11.0 H Immature Gran % (Auto) 0.8 H Lymph % (Auto) 13.3 L Lymph # (Auto) 0.83 L POC pH POC pCO2 POC HCO3 POC Total CO2 Carbon Dioxide 37 H 34 H Anion Gap 4.0 L 4.0 L Creatinine 0.6 L 0.6 L Glucose 124 H 112 H Uric Acid 2.2 L 1.8 L Calcium 8.4 L Lactate Dehydrogenase 251 H 240 H Total Protein 5.7 L Albumin 01/22/22 01/22/22 10:28 05:29 RBC Hgb Hct MCH MCHC RDW MPV Immature Gran % (Auto) Lymph % (Auto) Lymph # (Auto) POC pH 7.32 L POC pCO2 56.4 H* POC HCO3 29.2 H POC Total CO2 31.0 H Carbon Dioxide Anion Gap 7.0 L Creatinine 0.6 L Glucose 145 H Uric Acid 1.7 L Calcium 8.2 L Lactate Dehydrogenase 240 H Total Protein 5.5 L Albumin 2.9 L Meds: Medications Acetaminophen (Acetaminophen 325 Mg Tablet) 650 mg PO Q6HP PRN; Protocol PRN Reason: Per Pain Protocol/Fever > 101 Last Admin: 01/24/22 04:39 Dose: 650 mg Hydrocodone Bitart/Acetaminophen (Hydrocodone/Apap 5/325mg Tablet) 1 tab PO Q4HP PRN PRN Reason: PAIN LEVEL 3-6 Last Admin: 01/24/22 00:56 Dose: 1 tab Albuterol/Ipratropium (Ipratropium/Albuterol 3 Ml Ampul.Neb) 3 ml NEB Q4HP PRN PRN Reason: Shortness Of Breath Last Admin: 01/24/22 04:32 Dose: 3 ml Atorvastatin Calcium (Atorvastatin 40 Mg Tablet) 40 mg PO QHS SARAH Last Admin: 01/23/22 21:02 Dose: Not Given Budesonide (Budesonide 0.5 Mg/2 Ml Ampul.Neb) 0.5 mg NEB Q12 [facility] Last Admin: 01/23/22 18:35 Dose: 0.5 mg Chlordiazepoxide HCl (Chlordiazepoxide 25 Mg Capsule) 50 mg PO Q4HP PRN PRN Reason: Alcohol Withdrawal/Assess CIWA Last Admin: 01/24/22 05:59 Dose: 50 mg Chlorhexidine Gluconate (Chlorhexidine Gluconate 1 Ml Oral.Merissa) 15 ml SWABMOUTH BID [facility] Last Admin: 01/23/22 21:02 Dose: 15 ml Diazepam (Diazepam 10 Mg/2 Ml Syringe) 0 mg IV UD PRN; Protocol PRN Reason: Alcohol Withdrawal/Assess CIWA Last Admin: 01/24/22 00:56 Dose: 10 mg Docusate Sodium (Docusate Sodium 10 Mg/Ml Ml) 100 mg PO BID [facility] Last Admin: 01/23/22 21:02 Dose: 100 mg Enoxaparin Sodium (Enoxaparin 60 Mg/0.6 Ml Syringe) 60 mg SQ BID [facility] Last Admin: 01/23/22 21:02 Dose: 60 mg Fentanyl (Fentanyl 100 Mcg/2 Ml Vial) 25 - 50 mcg IV Q1HP PRN; Protocol PRN Reason: Per Pain Protocol Last Admin: 01/22/22 11:20 Dose: 50 mcg Folic Acid (Folic Acid 1 Mg Tablet) 1 mg PO DAILY [facility] Last Admin: 01/23/22 08:23 Dose: 1 mg Gabapentin (Gabapentin 400 Mg Capsule) 400 mg PO TID [facility] Last Admin: 01/23/22 21:01 Dose: 400 mg Haloperidol Lactate (Haloperidol Lactate 5 Mg/Ml Vial) 0.5 mg IM Q2HP PRN PRN Reason: Alcohol Withdrawal/Assess CIWA Last Admin: 01/23/22 02:21 Dose: 0.5 mg Hydralazine HCl (Hydralazine 20 Mg/Ml Vial) 0 mg IV Q2HP PRN PRN Reason: Hypertension Last Admin: 01/22/22 11:10 Dose: 10 mg Potassium Chloride 40 meq/ (Dextrose) 520 mls @ 130 mls/hr IV UD PRN PRN Reason: Potassium < 3 Magnesium Sulfate (Magnesium Sulfate) 2 gm in 50 mls @ 50 mls/hr IV UD PRN PRN Reason: Magnesium </= 1.6 Thiamine HCl 100 mg/ Sodium (Chloride) 51 mls @ 50 mls/hr IV DAILY [facility] Last Infusion: 01/23/22 11:25 Dose: Infused Sodium Chloride (Sodium Chloride 0.9%) 1,000 mls @ 120 mls/hr IV .Q8H20M [facility] Last Admin: 01/24/22 03:11 Dose: Not Given Azithromycin 500 mg/ Dextrose 250 mls @ 250 mls/hr IV Q24H [facility]; Protocol Stop: 01/25/22 09:59 Last Infusion: 01/23/22 11:25 Dose: Infused Midazolam HCl 50 mg/ Sodium (Chloride) 100 mls @ 2 mls/hr IV Q12HP PRN; Protocol PRN Reason: ETOH WITHDRAWAL Iron Carb/Multivit/Brutus/Folic Acid (Multivit,Ther Iron,Ca,Fa & Min 1 Tablet) 1 tab PO DAILY [facility] Last Admin: 01/23/22 08:23 Dose: 1 tab Labetalol HCl (Labetalol 5 Mg/Ml Ml) 0 mg IV Q2HP PRN PRN Reason: Hypertension Methylprednisolone Sodium Succinate (Methylprednisolone Sod Succ 40 Mg/Ml Vial) 20 mg IV Q12 [facility] Last Admin: 01/23/22 20:57 Dose: 20 mg Metoclopramide HCl (Metoclopramide 10 Mg/2 Ml Vial) 10 mg IV Q6HP PRN PRN Reason: Nausea And Vomiting Metoprolol Tartrate (Metoprolol Tartrate 25 Mg Tablet) 25 mg PO BID [facility] Last Admin: 01/23/22 21:01 Dose: 25 mg Montelukast Sodium (Montelukast 10 Mg Tablet) 10 mg PO QHS [facility] Last Admin: 01/23/22 21:01 Dose: 10 mg Ondansetron HCl (Ondansetron 4 Mg/2 Ml Vial) 4 mg IV Q4HP PRN PRN Reason: Nausea And Vomiting Last Admin: 01/20/22 00:10 Dose: 4 mg Pantoprazole Sodium (Pantoprazole 40 Mg Vial) 40 mg IV QAMAC [facility] Last Admin: 01/23/22 07:12 Dose: 40 mg Polyethylene Glycol (Polyethylene Glycol 3350 17 Gm Packet) 17 gm PO DAILYP PRN PRN Reason: Constipation Potassium Chloride (Potassium Chloride 20 Meq Tablet) 40 meq PO UD PRN PRN Reason: Potssium is 3-3.5 Potassium Chloride (Potassium Chloride 20 Meq Tablet) 40 meq PO UD PRN PRN Reason: Potassium < 3 Senna (Sennosides 1 Tablet) 2 tab PO DAILYP PRN PRN Reason: Constipation Sodium Chloride (0.9 % Sodium Chloride 10 Ml Syringe) 10 ml IV Q8 [facility] Last Admin: 01/24/22 06:00 Dose: Not Given Sodium Chloride (0.9 % Sodium Chloride 10 Ml Syringe) 10 ml IV Q12 [facility] Last Admin: 01/23/22 21:02 Dose: 10 ml Venlafaxine HCl (Venlafaxine 75 Mg Tablet) 112.5 mg PO BID [facility] Last Admin: 01/23/22 21:01 Dose: 112.5 mg A/P Narrative A/P Narrative: A: *Alcohol abuse w/Severe Alcohol Withdrawal and DT's: starting to improve *Acute hypoxic/hypercapnic respiratory failure: 2/2 above. 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 -on 3L oxymask *Probable aspiration pneumonitis: *Encephalopathy: 2/2 above, much better today *AECOPD (4L O2@home): - *Tobacco abuse: *Obesity: bmi 32 *DANE on cpap: *CAD w/stent: on eliquis -echo with good EF and diastolic fxn *Depression/PTSD: *Chronic pain/Neuropathy: *GERD: *Anemia, unknown chronicity: P: -prn suction, IS/Acapella -CIWA with prn benzo, vitamins/thiamine/folate -steroids(wean), nebs and prn nebs -O2 supp, IS/Acapella -start diet -home cpap -Smoking cessation counseling -pt/ot -ppx: lovenox bid while off eliquis / ppi Time Spent With Patient Time: Total time spent is greater than 50% in coordination of care (as documented) at patient's floor/unit and/or counseling patient: Total time spent with greater than 50% in coordination of care (as documented) at patient's floor/unit and/or counseling patient:: 35 - 50 minutes QUALITY VTE Deep Vein Thrombosis/Pulmonary Embolism Present on Admission: No Restraints Restraint In Place: No
[2022-01-24] MEDS: DOCUSATE SODIUM 10 MG/ML ML PO SCH ×2 (08:14→22:22)
[2022-01-24] MEDS: methylPREDNISolone SOD SUCC 40 MG/ML VIAL IV SCH ×2 (08:14→22:21)
[2022-01-24] MEDS: VENLAFAXINE 75 MG TABLET PO SCH ×2 (08:14→22:40)
[2022-01-24] MEDS: MULTIVIT,THER IRON,CA,FA & MIN 1 TABLET PO SCH (08:15)
[2022-01-24] MEDS: FOLIC ACID 1 MG TABLET PO SCH (08:15)
[2022-01-24] MEDS: METOPROLOL TARTRATE 25 MG TABLET PO SCH ×2 (08:15→22:21)
[2022-01-24] MEDS: GABAPENTIN 400 MG CAPSULE PO SCH ×3 (08:15→22:40)
[2022-01-24] MEDS: ENOXAPARIN 60 MG/0.6 ML SYRINGE SQ SCH ×2 (08:15→22:40)
[2022-01-24] MEDS ORDERED: acetaZOLAMIDE SOD 500 MG VIAL IV SCH (08:20)
[2022-01-24] MEDS: SENNOSIDES 1 TABLET PO PRN (08:34)
[2022-01-24] MEDS: POLYETHYLENE GLYCOL 3350 17 GM PACKET PO PRN (08:34)
[2022-01-24] MEDS: CHLORHEXIDINE GLUCONATE 1 ML ORAL.SOL SWABMOUTH SCH ×2 (08:35→22:22)
[2022-01-24] MEDS: BUDESONIDE 0.5 MG/2 ML AMPUL.NEB NEB SCH ×2 (08:35→19:00)
[2022-01-24] MEDS: AZITHROMYCIN 500 MG in DEXTROSE 5% IN WATER 250 ML IV SCH (08:37)
[2022-01-24] MEDS: THIAMINE 100 MG in 0.9 % SODIUM CHLORIDE 50 ML IV SCH (08:37)
[2022-01-24] MEDS: cefTRIAXone 1 GM VIAL IV SCH (14:37)
[2022-01-24] MEDS: MONTELUKAST 10 MG TABLET PO SCH (22:21)
[2022-01-24] MEDS: ATORVASTATIN 40 MG TABLET PO SCH (22:21)
[2022-01-25] MEDS: 0.9 % SODIUM CHLORIDE 1,000 ML IV SCH ×2 (02:15→05:53)
[2022-01-25] MEDS: ONDANSETRON 4 MG/2 ML VIAL IV PRN (02:54)
[2022-01-25] MEDS: chlordiazePOXIDE 25 MG CAPSULE PO PRN (02:54)
[2022-01-25] MEDS: HYDROcodone/APAP 5/325MG TABLET PO PRN ×3 (05:01→17:42)
[2022-01-25] MEDS: 0.9 % SODIUM CHLORIDE 10 ML SYRINGE IV SCH ×3 (05:54→21:09)
[2022-01-25 06:30] LABS: Basophils # (Auto) 0.02 K/mcL (0.00-0.30); Basophils % (Auto) 0.3 % (0.0-2.0); Eosinophils # (Auto) 0.02 K/mcL (0.00-0.70); Eosinophils % (Auto) 0.3 % (0.0-7.0); Hematocrit 35.9 % (40.1-51.0); Hemoglobin 10.9 g/dL (13.7-17.5); Lymphocytes # (Auto) 1.12 K/mcL (1.50-4.80); Lymphocytes % (Auto) 16.8 % (15.5-49.0); Mean Cell Volume 84.7 fL (80.0-100.0); Mean Corpuscular HGB Conc 30.4 g/dL (31.0-36.0); Mean Platelet Volume 11.6 fL (7.4-10.4); Monocytes # (Auto) 0.43 K/mcL (0.10-0.90); Monocytes % (Auto) 6.4 % (1.0-12.0); Neutrophils % (Auto) 75.6 % (38.0-78.0); Platelet Count 199 K/mcL (140-440); RBC 4.24 M/mcL (4.63-6.08); Red Cell Distribution Width 16.8 % (11.5-14.5); WBC 6.7 K/mcL (4.5-11.0)
[2022-01-25 06:54] LABS: ALT/SGPT 47 U/L (<40); AST/SGOT 28 U/L (<40); Albumin 3.5 gm/dL (3.2-5.2); Albumin/Globulin Ratio 1.3 (1.0-2.3); Alkaline Phosphatase 55 U/L (39-117); Bilirubin,Total 0.2 mg/dL (0.1-1.0); Blood Urea Nitrogen 14 mg/dL (8-23); Calcium 8.6 mg/dL (8.6-10.4); Carbon Dioxide 30 mmol/L (22-30); Chloride 102 mmol/L (96-108); Globulin 2.6 gm/dL (2.2-3.7); Glomerular Filtration Rate 96; Glucose 121 mg/dL (70-105); Phosphorous 3.9 mg/dL (2.5-4.5)
[2022-01-25] MEDS: PANTOPRAZOLE 40 MG TABLET PO SCH (07:38)
[2022-01-25] MEDS: MULTIVIT,THER IRON,CA,FA & MIN 1 TABLET PO SCH (08:06)
[2022-01-25] MEDS: methylPREDNISolone SOD SUCC 40 MG/ML VIAL IV SCH (08:06)
[2022-01-25] MEDS: VENLAFAXINE 75 MG TABLET PO SCH ×2 (08:06→21:09)
[2022-01-25] MEDS: METOPROLOL TARTRATE 25 MG TABLET PO SCH ×2 (08:06→21:08)
[2022-01-25] MEDS: THIAMINE 100 MG TABLET PO SCH (08:06)
[2022-01-25] MEDS: ENOXAPARIN 60 MG/0.6 ML SYRINGE SQ SCH (08:06)
[2022-01-25] MEDS: GABAPENTIN 400 MG CAPSULE PO SCH ×3 (08:06→21:08)
[2022-01-25] MEDS: FOLIC ACID 1 MG TABLET PO SCH (08:06)
[2022-01-25] MEDS: DOCUSATE SODIUM 10 MG/ML ML PO SCH ×2 (08:09→21:11)
[2022-01-25] MEDS: CHLORHEXIDINE GLUCONATE 1 ML ORAL.SOL SWABMOUTH SCH ×2 (08:10→21:08)
[2022-01-25] MEDS: BUDESONIDE 0.5 MG/2 ML AMPUL.NEB NEB SCH ×2 (08:49→19:30)
[2022-01-25] MEDS: IPRATROPIUM/ALBUTEROL 3 ML AMPUL.NEB NEB PRN ×2 (08:49→19:30)
[2022-01-25] MEDS ORDERED: AZITHROMYCIN 250 MG TABLET PO SCH (09:00)
--- NOTE | 2022-01-25 09:01 | Internal Med Progress Note ---
SUBJECTIVE Subjective Patient information: Note initiated : 01/25/22 at 8:53 am Service Date, if different from initiated Date: [] Patient: Armani Au a 66 y/o M admitted on 01/19/22 for alcohol withdraw. Chief Complaint: [] Principal diagnosis: Delirium tremens Interval history: Mr. Au is a 66 year old M Patient presents to [facility] Monday night for alcohol withdrawal. He has a history of alcohol-related seizure activity. He drinks a fifth of vodka daily In [place], he has been on IV Ativan with elevated CIWA scores and they have also been using Librium as they are running low on Ativan. They must be out of bed and are looking elsewhere for transfer. Chest x-ray report done at [place] reported left lower lobe consolidation. We will check a CBC and procalcitonin to evaluate for pneumonia. Patient does carry history of depression/PTSD possibly CAD and CHF as well as asthma obesity and of course alcohol abuse. Patient has a history of CAD with stents and is on Eliquis he says that Eliquis is for his heart. Patient has a history of COPD is on 4 L of oxygen day and night. He also wears a CPAP machine at night for DANE. Has a cough but states this is chronic. Also complains of headaches 01/20 Patient found to be hypercapnic with respiratory acidosis upon arrival yesterday was placed on BiPAP. Patient became quite agitated at times and did require heavy sedation. Over time his work of breathing increased and concern for airway compromise with IV sedation patient required intubation. Started on acute exacerbation COPD treatment yesterday for bilateral wheezing and severely diminished lung sounds. FEUrea <35%, FENa <1% 01/21 Patient doing relatively well on CPAP trial today. Good urine output. CBC unremarkable other than anemia. ABG this morning looks improved. We will attempt sedation vacation and see how he is neurologically. Hopefully we can extubate tomorrow morning. 01/22 Sedated on the vent. Good urine output. Undergoing CPAP trial this time. Will need sedation vacation to eluate neurological status and hopefully extubate today. 01/23 Patient little restless at times or night but calm in the morning. Extubated yesterday at noon. On 5 L oxygen mask. Vital signs stable. Still requiring withdrawal medications. Mentation waxes and wanes. 01/24 Patient more awake and alert today. Able to have a conversation with him. Does complain of a headache and some nausea and upset stomach. He also has a cough which is somewhat productive and he does have shortness of breath but he says that is baseline. 01/25: CIWA score between 6-7 overnight and this morning. Currently on 3L/min oxygen (baseline=4). Denies insomnia. Denies hallucinations. Denies increased hand tremors. c/o agitation and anxiety. Denies shortness of breath, cough, or wheezing. Denies fever, chills, or sweating. Transfer from ICU to med surg. Discontinue Damon catheter. Saline lock Discontinue Solu-Medrol Continue antibiotics (Rocephin Zithromax) for pneumonia Continue CIWA protocol with Valium/Librium Switch from Lovenox to Eliquis. Constitutional Vitals: Vital Signs Temp Pulse Resp BP Pulse Ox O2 Del Method O2 Flow Rate 36.6 C 70 20 138/76 96 3 01/25/22 08:43 01/25/22 01:01 01/25/22 08:43 01/25/22 08:43 01/25/22 08:43 01/25/22 07:40 01/25/22 08:43 Period Temp Pulse Resp BP Sys/Gonzales Pulse Ox O2 Del Method O2 Flow Rate Last 24 Hr 36.5 C-36.7 C 65-74 16-37 110-161/31-144 90-99 Nasal Cannula- Nasal Cannula 3-4 Intake and Output 01/24/22 01/25/22 01/25/22 21:59 05:59 13:59 Intake Total 1710 1214 240 Output Total 3720 1515 880 Balance -2009 Weight 111.221 kg Intake & Output: Intake & Output 01/24/22 01/25/22 01/25/22 21:59 05:59 13:59 Intake Total 1710 1214 240 Output Total 3720 1515 880 Balance Weight 111.221 kg Intake: IV 990 994 Sodium Chloride 0.9% 1,000 ml @ 990 994 120 mls/hr IV .[id number] SARAH Rx#: [id number] Sodium Chloride 0.9% 250 ml @ 0 20 mls/hr IV .[id number] SARAH Rx#: [id number] Versed 50 mg In Sodium Chloride 0 0.9% 90 ml @ 1 MG/HR 2 mls/hr IV Q12H [facility] Rx#:[id number] Oral 720 220 240 Output: Urine Catheter Amount 8160 7055 450 Other: Meal Dinner Breakfast Percent of Meal Consumed 75% 100% Feeding Ability Independent Urine Appearance Clear Clear Clear Urine Color Bright Yellow Pale Pale Urine Odor Normal Normal # Bowel Movements 0 # of times incontinent of 0 Bowels General appearance: average body habitus, cooperative, disheveled and no acute distress Head Head exam: Present atraumatic and normal inspection Eye Eye exam: Present normal appearance ENT ENT exam: Present mucous membranes moist, normal exam and normal external ear exam Additional comments: Nasal cannula in place Neck Neck exam: Present normal inspection Respiratory Respiratory exam: Present normal respiratory exam Cardiovascular Cardiovascular exam: Present normal rate and rhythm GI/Abdominal GI/Abdominal exam: Present normal bowel sounds Back Exam Back exam: Present normal inspection Neurological Exam Neurological exam: Present alert and oriented X3 Skin Skin exam: Present intact and warm OBJ DATA Labs CBC & Chem 7: 01/25/22 04:47 01/25/22 04:46 Labs: Abnormal Lab Results 01/25/22 01/25/22 01/24/22 04:47 04:46 05:26 RBC 4.24 L Hgb 10.9 L Hct 35.9 L MCH 25.7 L MCHC 30.4 L RDW 16.8 H MPV 11.6 H Immature Gran % (Auto) 0.6 H Lymph % (Auto) Lymph # (Auto) 1.12 L POC pH POC pCO2 POC HCO3 POC Total CO2 Carbon Dioxide 37 H Anion Gap 6.0 L 4.0 L Creatinine 0.6 L Glucose 121 H 124 H Uric Acid 2.2 L Calcium ALT 47 H Lactate Dehydrogenase 251 H Total Protein 01/23/22 01/23/22 01/22/22 05:29 05:29 10:28 RBC 3.75 L Hgb 9.7 L Hct 31.5 L MCH 25.9 L MCHC 30.8 L RDW 17.2 H MPV 11.0 H Immature Gran % (Auto) 0.8 H Lymph % (Auto) 13.3 L Lymph # (Auto) 0.83 L POC pH 7.32 L POC pCO2 56.4 H* POC HCO3 29.2 H POC Total CO2 31.0 H Carbon Dioxide 34 H Anion Gap 4.0 L Creatinine 0.6 L Glucose 112 H Uric Acid 1.8 L Calcium 8.4 L ALT Lactate Dehydrogenase 240 H Total Protein 5.7 L Meds: Medications Acetaminophen (Acetaminophen 325 Mg Tablet) 650 mg PO Q6HP PRN; Protocol PRN Reason: Per Pain Protocol/Fever > 101 Last Admin: 01/24/22 04:39 Dose: 650 mg Hydrocodone Bitart/Acetaminophen (Hydrocodone/Apap 5/325mg Tablet) 1 tab PO Q4HP PRN PRN Reason: PAIN LEVEL 3-6 Last Admin: 01/25/22 05:01 Dose: 1 tab Albuterol/Ipratropium (Ipratropium/Albuterol 3 Ml Ampul.Neb) 3 ml NEB Q4HP PRN PRN Reason: Shortness Of Breath Last Admin: 01/25/22 08:49 Dose: 3 ml Apixaban (Apixaban 5 Mg Tablet) 5 mg PO BID SARAH Atorvastatin Calcium (Atorvastatin 40 Mg Tablet) 40 mg PO QHS [facility] Last Admin: 01/24/22 22:21 Dose: 40 mg Azithromycin (Azithromycin 250 Mg Tablet) 500 mg PO 0900 [facility] Stop: 01/25/22 12:00 Last Admin: 01/25/22 08:06 Dose: 500 mg Budesonide (Budesonide 0.5 Mg/2 Ml Ampul.Neb) 0.5 mg NEB Q12 SARAH Last Admin: 01/25/22 08:49 Dose: 0.5 mg Ceftriaxone Sodium (Ceftriaxone 1 Gm Vial) 1 gm IV Q24H SARAH; Protocol Last Admin: 01/24/22 14:37 Dose: 1 gm Chlordiazepoxide HCl (Chlordiazepoxide 25 Mg Capsule) 50 mg PO Q4HP PRN PRN Reason: Alcohol Withdrawal/Assess CIWA Last Admin: 01/25/22 02:54 Dose: 50 mg Chlorhexidine Gluconate (Chlorhexidine Gluconate 1 Ml Oral.Merissa) 15 ml SWABMOUTH BID SARAH Last Admin: 01/25/22 08:10 Dose: 15 ml Diazepam (Diazepam 10 Mg/2 Ml Syringe) 0 mg IV UD PRN; Protocol PRN Reason: Alcohol Withdrawal/Assess CIWA Last Admin: 01/24/22 00:56 Dose: 10 mg Docusate Sodium (Docusate Sodium 10 Mg/Ml Ml) 100 mg PO BID [facility] Last Admin: 01/25/22 08:09 Dose: 100 mg Fentanyl (Fentanyl 100 Mcg/2 Ml Vial) 25 - 50 mcg IV Q1HP PRN; Protocol PRN Reason: Per Pain Protocol Last Admin: 01/22/22 11:20 Dose: 50 mcg Folic Acid (Folic Acid 1 Mg Tablet) 1 mg PO DAILY [facility] Last Admin: 01/25/22 08:06 Dose: 1 mg Gabapentin (Gabapentin 400 Mg Capsule) 400 mg PO TID [facility] Last Admin: 01/25/22 08:06 Dose: 400 mg Haloperidol Lactate (Haloperidol Lactate 5 Mg/Ml Vial) 0.5 mg IM Q2HP PRN PRN Reason: Alcohol Withdrawal/Assess CIWA Last Admin: 01/23/22 02:21 Dose: 0.5 mg Hydralazine HCl (Hydralazine 20 Mg/Ml Vial) 0 mg IV Q2HP PRN PRN Reason: Hypertension Last Admin: 01/22/22 11:10 Dose: 10 mg Potassium Chloride 40 meq/ (Dextrose) 520 mls @ 130 mls/hr IV UD PRN PRN Reason: Potassium < 3 Magnesium Sulfate (Magnesium Sulfate) 2 gm in 50 mls @ 50 mls/hr IV UD PRN PRN Reason: Magnesium </= 1.6 Sodium Chloride (Sodium Chloride 0.9%) 1,000 mls @ 120 mls/hr IV .Q8H20M [facility] Last Admin: 01/25/22 05:53 Dose: Not Given Midazolam HCl 50 mg/ Sodium (Chloride) 100 mls @ 2 mls/hr IV Q12HP PRN; Protocol PRN Reason: ETOH WITHDRAWAL Iron Carb/Multivit/[place]/Folic Acid (Multivit,Ther Iron,Ca,Fa & Min 1 Tablet) 1 tab PO DAILY [facility] Last Admin: 01/25/22 08:06 Dose: 1 tab Labetalol HCl (Labetalol 5 Mg/Ml Ml) 0 mg IV Q2HP PRN PRN Reason: Hypertension Metoclopramide HCl (Metoclopramide 10 Mg/2 Ml Vial) 10 mg IV Q6HP PRN PRN Reason: Nausea And Vomiting Metoprolol Tartrate (Metoprolol Tartrate 25 Mg Tablet) 25 mg PO BID [facility] Last Admin: 01/25/22 08:06 Dose: 25 mg Montelukast Sodium (Montelukast 10 Mg Tablet) 10 mg PO QHS [facility] Last Admin: 01/24/22 22:21 Dose: 10 mg Ondansetron HCl (Ondansetron 4 Mg/2 Ml Vial) 4 mg IV Q4HP PRN PRN Reason: Nausea And Vomiting Last Admin: 01/25/22 02:54 Dose: 4 mg Pantoprazole Sodium (Pantoprazole 40 Mg Tablet) 40 mg PO QAMAC [facility] Last Admin: 01/25/22 07:38 Dose: 40 mg Polyethylene Glycol (Polyethylene Glycol 3350 17 Gm Packet) 17 gm PO DAILYP PRN PRN Reason: Constipation Last Admin: 01/24/22 08:34 Dose: 17 gm Potassium Chloride (Potassium Chloride 20 Meq Tablet) 40 meq PO UD PRN PRN Reason: Potssium is 3-3.5 Potassium Chloride (Potassium Chloride 20 Meq Tablet) 40 meq PO UD PRN PRN Reason: Potassium < 3 Senna (Sennosides 1 Tablet) 2 tab PO DAILYP PRN PRN Reason: Constipation Last Admin: 01/24/22 08:34 Dose: 2 tab Sodium Chloride (0.9 % Sodium Chloride 10 Ml Syringe) 10 ml IV Q8 [facility] Last Admin: 01/25/22 05:54 Dose: 10 ml Sodium Chloride (0.9 % Sodium Chloride 10 Ml Syringe) 10 ml IV Q12 [facility] Last Admin: 01/25/22 08:07 Dose: 10 ml Thiamine HCl (Thiamine 100 Mg Tablet) 100 mg PO DAILY [facility] Last Admin: 01/25/22 08:06 Dose: 100 mg Venlafaxine HCl (Venlafaxine 75 Mg Tablet) 112.5 mg PO BID [facility] Last Admin: 01/25/22 08:06 Dose: 112.5 mg A/P Assessment and plan (1) Aspiration pneumonia: Status: Acute (2) Hypochromic anemia: Status: Acute (3) Delirium tremens: Status: Acute (4) COPD (chronic obstructive pulmonary disease): Status: Acute (5) CAD (coronary artery disease): Status: Acute (6) Chronic anticoagulation: Status: Acute Narrative A/P Narrative: Assessment and Plans: 1. Delirium Tremens: Transfer from ICU to [facility] surg Continue CIWA protocol with Valium/Librium Saline lock manager acquisitionclinical support manager therapy 2. Aspiration pneumonia: Continue supplemental oxygen therapy Rocephin Zithromax cbc w/ auto diff in the morning to trend WBC Robitussin 3. h/o COPD: Continue supplemental oxygen therapy (baseline=4L/min) d/c Solu-medrol Continue Singular and Pulmicort Continue bronchodilators 4. Hypochromic Anemia: Continue nutritional supplements cbc w/ auto diff in the morning to trend H/H 5. h/o CAD s/p coronary stent placement: Switch from Lovenox to Eliquis Continue Lipitor GI ppx: Protonix DVT ppx: Eliquis Code status: Full Prognosis: guarded Disposition: Transfer from ICU to med surg Time Spent With Patient Time: Total time spent is greater than 50% in coordination of care (as documented) at patient's floor/unit and/or counseling patient: Total time spent with greater than 50% in coordination of care (as documented) at patient's floor/unit and/or counseling patient:: 50 - 70 minutes QUALITY VTE Deep Vein Thrombosis/Pulmonary Embolism Present on Admission: No Restraints Restraint In Place: No
[2022-01-25] MEDS: APIXABAN 5 MG TABLET PO SCH ×2 (09:03→21:08)
[2022-01-25] MEDS: SENNOSIDES 1 TABLET PO PRN (09:18)
[2022-01-25] MEDS: POLYETHYLENE GLYCOL 3350 17 GM PACKET PO PRN (09:18)
[2022-01-25] MEDS: cefTRIAXone 1 GM VIAL IV SCH (14:02)
[2022-01-25] MEDS: MONTELUKAST 10 MG TABLET PO SCH (21:08)
[2022-01-25] MEDS: ATORVASTATIN 40 MG TABLET PO SCH (21:08)
[2022-01-26 06:31] LABS: Basophils # (Auto) 0.02 K/mcL (0.00-0.30); Basophils % (Auto) 0.3 % (0.0-2.0); Eosinophils # (Auto) 0.21 K/mcL (0.00-0.70); Eosinophils % (Auto) 3.5 % (0.0-7.0); Hematocrit 35.3 % (40.1-51.0); Hemoglobin 10.7 g/dL (13.7-17.5); Lymphocytes # (Auto) 2.16 K/mcL (1.50-4.80); Lymphocytes % (Auto) 35.9 % (15.5-49.0); Mean Cell Volume 84.4 fL (80.0-100.0); Mean Corpuscular HGB Conc 30.3 g/dL (31.0-36.0); Monocytes # (Auto) 0.73 K/mcL (0.10-0.90); Monocytes % (Auto) 12.1 % (1.0-12.0); Neutrophils % (Auto) 47.9 % (38.0-78.0); Platelet Count 204 K/mcL (140-440); RBC 4.18 M/mcL (4.63-6.08); Red Cell Distribution Width 16.5 % (11.5-14.5)
[2022-01-26 06:58] LABS: ALT/SGPT 54 U/L (<40); AST/SGOT 30 U/L (<40); Albumin 3.4 gm/dL (3.2-5.2); Albumin/Globulin Ratio 1.3 (1.0-2.3); Alkaline Phosphatase 54 U/L (39-117); Bilirubin,Total 0.2 mg/dL (0.1-1.0); Blood Urea Nitrogen 16 mg/dL (8-23); Calcium 8.7 mg/dL (8.6-10.4); Carbon Dioxide 36 mmol/L (22-30); Chloride 101 mmol/L (96-108); Globulin 2.6 gm/dL (2.2-3.7); Glomerular Filtration Rate 96; Glucose 85 mg/dL (70-105); Phosphorous 3.8 mg/dL (2.5-4.5)
[2022-01-26] MEDS: PANTOPRAZOLE 40 MG TABLET PO SCH (07:31)
[2022-01-26] MEDS: IPRATROPIUM/ALBUTEROL 3 ML AMPUL.NEB NEB PRN (07:39)
[2022-01-26] MEDS: BUDESONIDE 0.5 MG/2 ML AMPUL.NEB NEB SCH (07:39)
--- NOTE | 2022-01-26 08:33 | Discharge Summary ---
Discharge Provider Provider IMPORTANT FOLLOW-UP INFORMATION FOR PCP: Patient information: Note initiated : 01/26/22 at 8:31 am Service Date, if different from initiated Date: [] Patient: Armani Au a 66 y/o M admitted on 01/19/22 for alcohol withdraw. Chief Complaint: [] Date of admission: 01/19/22 13:45 Discharge date: 01/26/22 Primary care physician: Unknown Unknown Attending physician on admission: Abdifatah Hammer Attending physician on discharge: Carl PETTIT Hospital Course Hospital course: Mr. Au is a 66 year old M Patient presents to [facility] Monday night for alcohol withdrawal. He has a history of alcohol-related seizure activity. He drinks a fifth of vodka daily In [place], he has been on IV Ativan with elevated CIWA scores and they have also been using Librium as they are running low on Ativan. They must be out of bed and are looking elsewhere for transfer. Chest x-ray report done at [place] reported left lower lobe consolidation. We will check a CBC and procalcitonin to evaluate for pneumonia. Patient does carry history of depression/PTSD possibly CAD and CHF as well as asthma obesity and of course alcohol abuse. Patient has a history of CAD with stents and is on Eliquis he says that Eliquis is for his heart. Patient has a history of COPD is on 4 L of oxygen day and night. He also wears a CPAP machine at night for DANE. Has a cough but states this is chronic. Also complains of headaches 01/20 Patient found to be hypercapnic with respiratory acidosis upon arrival yesterday was placed on BiPAP. Patient became quite agitated at times and did require heavy sedation. Over time his work of breathing increased and concern for airway compromise with IV sedation patient required intubation. Started on acute exacerbation COPD treatment yesterday for bilateral wheezing and severely diminished lung sounds. FEUrea <35%, FENa <1% 01/21 Patient doing relatively well on CPAP trial today. Good urine output. CBC unremarkable other than anemia. ABG this morning looks improved. We will attempt sedation vacation and see how he is neurologically. Hopefully we can extubate tomorrow morning. 01/22 Sedated on the vent. Good urine output. Undergoing CPAP trial this time. Will need sedation vacation to eluate neurological status and hopefully extubate today. 01/23 Patient little restless at times or night but calm in the morning. Extubated yesterday at noon. On 5 L oxygen mask. Vital signs stable. Still requiring withdrawal medications. Mentation waxes and wanes. 01/24 Patient more awake and alert today. Able to have a conversation with him. Does complain of a headache and some nausea and upset stomach. He also has a cough which is somewhat productive and he does have shortness of breath but he says that is baseline. 01/25: CIWA score between 6-7 overnight and this morning. Currently on 3L/min oxygen (baseline=4). Denies insomnia. Denies hallucinations. Denies increased hand tremors. c/o agitation and anxiety. Denies shortness of breath, cough, or wheezing. Denies fever, chills, or sweating. 01/27: Reached clinical stability, decision made to discharge to SNF with Rx given. All questions were answered prior to patient being physically discharged. Discharge diagnosis: Delirium tremens Time Spent with Patient Time attestation: Total time spent providing and/or coordinating discharge services: Time spent: Less than 30 minutes EXAM Constitutional Vitals: Temp Pulse Resp BP Pulse Ox O2 Del Method O2 Flow Rate 36.9 C 84 16 121/76 91 3 01/26/22 08:26 01/26/22 08:26 01/26/22 08:26 01/26/22 08:26 01/26/22 08:26 01/26/22 08:26 01/26/22 08:26 General appearance: cooperative and no acute distress Head Head exam: Present atraumatic and normocephalic Eye Eye exam: Present EOMI and PERRL ENT ENT exam: Present mucous membranes moist, normal exam and normal external ear exam Neck Neck exam: Present normal inspection; Absent lymphadenopathy, tenderness or thyromegaly Respiratory Respiratory exam: Absent accessory muscle use, respiratory distress or wheezes Cardiovascular Cardiovascular exam: Present normal rate and rhythm; Absent JVD GI/Abdominal GI/Abdominal exam: Present normal bowel sounds and soft; Absent organomegaly or tenderness Rectal Rectal exam: Present deferred Extremities Exam Extremities exam: Present full ROM, normal capillary refill and normal inspection; Absent tenderness Neurological Exam Neurological exam: Present alert, CN II-XII intact and oriented X3; Absent motor sensory deficit Psychiatric Psychiatric exam: Present normal affect and normal mood; Absent anxious or depressed Skin Skin exam: Present dry and intact Discharge Data Data Completed and Pending Labs on day of discharge: Labs from last 24 hours 01/26/22 01/26/22 05:04 05:04 WBC 6.0 RBC 4.18 L Hgb 10.7 L Hct 35.3 L MCV 84.4 MCH 25.6 L MCHC 30.3 L RDW 16.5 H Plt Count 204 MPV 11.0 H Immature Gran % (Auto) 0.3 Neut % (Auto) 47.9 Lymph % (Auto) 35.9 [place] % (Auto) 12.1 H Eos % (Auto) 3.5 Baso % (Auto) 0.3 Lymph # (Auto) 2.16 [place] # (Auto) 0.73 Eos # (Auto) 0.21 Baso # (Auto) 0.02 Immature Gran # 0.02 Absolute Neutrophils 2.87 Sodium 143 Potassium 3.9 Chloride 101 Carbon Dioxide 36 H Anion Gap 6.0 L BUN 16 Creatinine 0.7 GFR Calculation 96 Glucose 85 Calcium 8.7 Phosphorus 3.8 Magnesium 2.2 Total Bilirubin 0.2 AST 30 ALT 54 H Alkaline Phosphatase 54 Total Protein 6.0 Albumin 3.4 Globulin 2.6 Albumin/Globulin Ratio 1.3 Discharge Plan Patient/Caregiver Discharge Instructions Activity: increase activity as tolerated Diet: Regular Diet Prescriptions: New folic acid 1 mg Tablet 1 mg PO DAILY 30 Days Qty: 30 0RF Thera M Plus (ferrous fumarat) 9 mg iron-400 mcg Tablet 1 tab PO DAILY 30 Days Qty: 30 0RF thiamine mononitrate (vit B1) 100 mg Tablet 100 mg PO DAILY 30 Days Qty: 30 0RF amoxicillin-pot clavulanate [Augmentin] 500-125 mg tablet 1 tab PO BID Qty: 10 0RF Continued omeprazole 20 mg Tablet,Delayed Release (Dr/Ec) 40 mg PO BID venlafaxine 150 mg Tablet Extended Release 24hr 225 mg PO QDAY albuterol 90 mcg/actuation Aerosol 90 mcg INHALATION TID gabapentin 400 mg Capsule 900 mg PO BID apixaban 2.5 mg Tablet 5 mg PO BID atorvastatin 40 mg Tablet 40 mg PO QHS metoprolol succinate 50 mg Tablet Extended Release 24 Hr 50 mg PO QDAY thiamine HCl (vitamin B1) 100 mg Tablet 100 mg PO QDAY montelukast 10 mg Tablet 10 mg PO QHS nicotine (polacrilex) 4 mg Lozenge 1 mg PO PRN PRN (Reason: Smoking cessation) acamprosate 333 mg Tablet,Delayed Release (Dr/Ec) 666 mg PO TID guaifenesin [Mucinex] 600 mg Tablet Extended Release 12hr 600 mg PO BID tiotropium-olodaterol 2.5-2.5 mcg/actuation Mist 1 inh INHALATION PRN PRN (Reason: Shortness Of Breath) Follow Up Plan Patient Disposition: Xfer SNF Rehab Potential: Good I certify that the patient requires SNF services: Yes Overall status at discharge: patient is progressing back to baseline Discharge Orders: Discharge Order (Routine); Ordered 01/26/22 Ordered By: Carl VERGARA VTE Deep Vein Thrombosis/Pulmonary Embolism Present on Admission: No
[2022-01-26] MEDS ORDERED: DOCUSATE SODIUM 100 MG CAPSULE PO SCH (09:00)
[2022-01-26] MEDS: FOLIC ACID 1 MG TABLET PO SCH (09:08)
[2022-01-26] MEDS: THIAMINE 100 MG TABLET PO SCH (09:08)
[2022-01-26] MEDS: MULTIVIT,THER IRON,CA,FA & MIN 1 TABLET PO SCH (09:08)
[2022-01-26] MEDS: METOPROLOL TARTRATE 25 MG TABLET PO SCH (09:08)
[2022-01-26] MEDS: VENLAFAXINE 75 MG TABLET PO SCH (09:08)
[2022-01-26] MEDS: APIXABAN 5 MG TABLET PO SCH (09:08)
[2022-01-26] MEDS: GABAPENTIN 400 MG CAPSULE PO SCH (09:08)
[2022-01-26] MEDS: CHLORHEXIDINE GLUCONATE 1 ML ORAL.SOL SWABMOUTH SCH (09:10)
[2022-01-26] MEDS: 0.9 % SODIUM CHLORIDE 10 ML SYRINGE IV SCH (09:10)
[2022-01-26] MEDS: HYDROcodone/APAP 5/325MG TABLET PO PRN (09:16)
== END 2022-01-26 10:43 | DRG 896 ==
LOC: ICU 13:45
PROVIDERS: ADMIT Internal Medicine; ATTEND Internal Medicine